=== PATIENT | male | born 1950 | race Caucasian/White ===

== ENCOUNTER → 2019-04-03 09:14 | Outpatient (CLI) | payer OTHER, MEDICARE, SELFPAY ==
[2019-04-03 10:26] LABS: Alanine Aminotransferase 17 IU/L (21-72); Albumin 4.3 g/dL (3.5-5.0); Albumin Globulin Ratio 1.5 (1.0-2.8); Alkaline Phosphatase 57 U/L (38-126); Aspartate Aminotransferase 21 IU/L (17-59); Bilirubin Total 0.8 mg/dL (0.2-1.3); Blood Urea Nitrogen 14 mg/dL (9-20); Calcium 9.5 mg/dL (8.4-10.2); Carbon Dioxide 29 mmol/L (22-32); Chloride 103 mmol/L (98-107); Cholesterol 178 mg/dL (140-199); Estimated Glomerular Filt Rate > 60.0 mL/min (>60); Globulin 2.9 g/dL (1.7-4.1); Glucose 101 mg/dL (80-110); HDL Cholesterol 31 mg/dL (40-60); HEMOLYSIS < 15 (0-50); LDL Cholesterol Calculated 121 mg/dL (<100); Potassium 4.3 mmol/L (3.4-5.1); Sodium 141 mmol/L (137-145); Total Protein 7.2 g/dL (6.3-8.2); Triglycerides 131 mg/dL (35-150)
[2019-04-03 10:35] LABS: Free T4, Direct Thyroxine 0.77 ng/dL (0.78-2.19)
[2019-04-03 10:49] LABS: Thyroid Stimulating Hormone 3.48 uIU/mL (0.47-4.68)
[2019-04-03 10:51] LABS: Prostate Specific Antigen Scrn 1.41 ng/mL (0.1-4.0)
== END ==
PROVIDERS: PCP Internal Medicine; Visit Provider Internal Medicine
DX: E03.9 Hypothyroidism, unspecified (principal); E78.5 Hyperlipidemia, unspecified; Z12.5 Encounter for screening for malignant neoplasm of prostate
CPT/HCPCS: 36415; 80053; 80061; 84439; 84443; G0103

== ENCOUNTER → 2022-11-22 10:40 | Outpatient (CLI) | payer MEDICARE, BC, SELFPAY ==
[2022-11-22 12:34] LABS: Alanine Aminotransferase 27 IU/L (<50); Albumin 4.4 g/dL (3.5-5.0); Albumin Globulin Ratio 1.4 (1.0-2.8); Alkaline Phosphatase 47 U/L (38-126); Aspartate Aminotransferase 26 IU/L (17-59); Bilirubin Total 0.9 mg/dL (0.2-1.3); Blood Urea Nitrogen 20 mg/dL (9-20); Calcium 9.1 mg/dL (8.4-10.2); Carbon Dioxide 25 mmol/L (22-32); Chloride 105 mmol/L (98-107); Cholesterol 216 mg/dL (140-199); Estimated Glomerular Filt Rate > 60 mL/min (>60); Globulin 3.1 g/dL (1.7-4.1); Glucose 96 mg/dL (80-110); HDL Cholesterol 33 mg/dL (40-60); HEMOLYSIS < 15 (0-50); LDL Cholesterol Calculated 146 mg/dL (<100); Sodium 138 mmol/L (137-145); Total Protein 7.5 g/dL (6.3-8.2); Triglycerides 183 mg/dL (35-150)
[2022-11-22 12:49] LABS: Free T4, Direct Thyroxine 0.84 ng/dL (0.78-2.19)
[2022-11-22 13:03] LABS: Thyroid Stimulating Hormone 3.33 uIU/mL (0.47-4.68)
[2022-11-22 13:05] LABS: Prostate Specific Antigen Scrn 2.96 ng/mL (0.1-4.0)
[2022-11-23 12:30] LABS: Var-Zoster Immunity Screen 1977 index (Immune >165)
== END ==
PROVIDERS: PCP Internal Medicine; Referring Provider Internal Medicine; Visit Provider Internal Medicine
DX: E03.9 Hypothyroidism, unspecified (principal); Z12.5 Encounter for screening for malignant neoplasm of prostate; E78.5 Hyperlipidemia, unspecified
CPT/HCPCS: 36415; 80053; 80061; 84439; 84443; 86787; G0103

== ENCOUNTER → 2022-12-11 11:53 | Outpatient (CLI) | payer MEDICARE, BC, SELFPAY ==
--- NOTE | 2022-12-11 11:54 | DI.RAD.S_ITS ---
PROCEDURE: XR KNEE LT 3V INDICATIONS: left knee pain TECHNIQUE: 3 views of the knee were acquired. COMPARISON: None. FINDINGS: Bones: No fractures or dislocations. No suspicious bony lesions. Mild tricompartmental osteoarthritic degenerative change. Soft tissues: No joint effusion. No suspicious soft tissue calcifications. IMPRESSION: Mild tricompartmental osteoarthritis. Dictated by: Vita Coe MD, PhD on 12/11/2022 at 13:22 Approved by: Vita Coe MD, PhD on 12/11/2022 at 13:23
== END ==
PROVIDERS: PCP Internal Medicine; Referring Provider Internal Medicine; Visit Provider Internal Medicine
DX: M17.12 Unilateral primary osteoarthritis, left knee (principal); M25.562 Pain in left knee
CPT/HCPCS: 73562

== ENCOUNTER 2023-02-07 07:35 | Day surgery (SDC) | payer MEDICARE, BC, SELFPAY ==
--- NOTE | 2023-02-07 | PATH_ITS ---
[facility] Accession Number: [id number] No. of containers..01 Tissue . 01 Material submitted: . rectum - RECTAL POLYP . 01 Diagnosis: Rectal Polyp: Hyperplastic polyp. MRV 02/14/2023 1254 Local . 01 Electronically signed: . Gustabo Spring MD, PhD, Pathologist NPI- [id number] . 01 Gross description: . RECTAL POLYP: Received in formalin is 1 fragment(s) of mora, soft tissue measuring 0.4 x 0.3 x 0.1 cm submitted entirely in 1 cassette(s) /LINDSEY 02/12/2023 0036 Local . 01 Pathologist provided ICD-10: K62.1 . 01 CPT . 744256 Specimen Comment: A courtesy copy of this report has been sent to [phone] Performed at: 01 [facility] [address] [place] [address] [id number] MD Fam Sharma MD Phone: [phone]
[2023-02-07 08:02] VITALS: BP 149/82; PULSE 63; RESP 16; TEMP 36.3; O2SAT 99; BMI 33.5
[2023-02-07] MEDS: LACTATED RINGERS 1,000 ML 150 ML IV (08:14)
--- NOTE | 2023-02-07 08:37 | PM.HP.1 ---
History of Present Illness History of Present Illness Date Patient Seen: 02/07/23 Time Patient Seen: 08:37 Chief complaint: Screening Colonoscopy Narrative: Prasad is a 72-year-old man who is here for a colonoscopy. He has no family history of colon cancer. He is never had a colonoscopy before. [facility] Medical History (Updated 02/07/23 @ 08:37 by Josh Bradley MD) Acquired hypothyroidism (04/14/12) Hyperlipidemia (04/14/12) Family History (Updated 11/22/22 @ 10:22 by Guillermo Lazo MD) Brother Prostate cancer Social History household members: spouse Smoking Status: Never smoker alcohol intake: never Meds Home Medications and Allergies Home Medications Medication Instructions Recorded Confirmed Type simvastatin 40 mg tablet 40 mg PO DAILY #90 tabs 12/11/22 02/07/23 Rx sodium sul 1.479 gram-potas ch See Rx Instructions PO PER PKG DIR 12/20/22 02/07/23 Rx 0.188 gram-magnes sul 0.225 gram #24 tabs tablet (Sutab) Allergies Allergy/AdvReac Type Severity Reaction Status Date / Time No Known Drug Allergies Allergy Verified 12/11/22 11:09 Exam Vital Signs (past 8 hours): - 02/07/23 08:02 Temperature 97.3 F L Pulse Rate 63 Respiratory Rate 16 Blood Pressure 149/82 H Pulse Oximetry 99 Oxygen Delivery Method Room Air Oxygen Delivery Method Room Air Const General: healthy appearing Assessment & Plan Assessment and plan (1) Colon cancer screening: Status: Acute Plan We reviewed the risks and benefits of colonoscopy for colon cancer screening and he would like to proceed.
--- NOTE | 2023-02-07 09:10 | PM.OP.COLON ---
Operative Date/Time/Diagnoses Date of procedure: 02/07/23 Time of procedure: 09:11 Pre-op diagnosis: Colon cancer screening Post-op diagnosis: same Procedure & Clinicians Study performed: Colonoscopy Same procedure as scheduled: Yes Surgeon: Josh Bradley Procedure Notes Procedure in detail: Surgeon: Josh Bradley MD Anesthesia: Fabrice Aguilar CRNA Procedure: The patient was brought to the endoscopy suite, placed in left lateral decubitus position. The patient was connected to monitoring devices. A time-out was performed. Sedation was administered. Once the patient was adequately sedated, a digital rectal exam was performed and was normal. The scope was then inserted and advanced to the cecum where the appendiceal orifice was identified and photographed. The scope was then slowly withdrawn over greater than 6 minutes. The mucosa was thoroughly inspected. There was a 4 mm polyp in the mid rectum removed with the Jumbo forceps. The scope was retroflexed in the rectum. No other abnormalities were found. The scope was straightened and removed. The patient was awakened and brought to recovery. Scope withdrawal time: 13 minutes Sedation time: 17 minutes EBL: 2 mL Findings: 4 mm rectal Post-procedure Disposition: PACU
[2023-02-07 09:11] VITALS: BP 98/60; PULSE 79; RESP 17; TEMP 37.2; O2SAT 98
[2023-02-07 09:16] VITALS: BP 97/69; PULSE 79; RESP 20; TEMP 37.1; O2SAT 96
[2023-02-07 09:22] VITALS: BP 93/63; PULSE 68; RESP 14; O2SAT 96
[2023-02-07 09:31] VITALS: BP 98/68; PULSE 65; RESP 14; TEMP 37.1; O2SAT 98
== END 2023-02-07 09:55 | disposition home or self-care (01) ==
PROVIDERS: Family Provider Internal Medicine; PCP Internal Medicine; Referring Provider Surgery; Visit Provider Surgery
PROC: 0DJD8ZZ Inspection of Lower Intestinal Tract, Via Natural or Artificial Opening Endoscopic (ICD-10-PCS; CPT 45378; principal; 2023-02-07 08:45)
DX: Z12.11 Encounter for screening for malignant neoplasm of colon (principal); K62.1 Rectal polyp
CPT/HCPCS: 45380; J2704

== ENCOUNTER 2023-03-26 12:45 | Outpatient (RCR) | payer MEDICARE, BC, SELFPAY ==
--- NOTE | 2023-01-08 14:29 | PT.OIE ---
Current Diagnoses Pain in left knee (01/08/23) Difficulty in walking, not elsewhere classified (01/08/23) Abnormal posture (01/08/23) Weakness (01/08/23) Past Medical History (Last Updated 12/11/22 @ 11:44 by Guillermo Lazo MD) Acquired hypothyroidism (04/14/12) Hyperlipidemia (04/14/12) Visit Care Team Role Provider Type Guillermo Lazo MD Attending Provider Physician Family Provider Primary Care Provider Referring Provider Specialty: Internal Medicine Address: [address] [place] [address], [address], [facility] Email: [email or web address] Physical Therapy Initial Evaluation PT-OP-A Visit Information Start: 01/07/23 13:48 Freq: Status: Active Protocol: Document 01/08/23 07:28 [facility] (Rec: 01/08/23 08:18 [facility] [id number]) Out-Patient Physical Therapy Visit Information Visit Information Visit Type Initial Evaluation Visit Start Time 07:35 Visit Stop Time 08:15 Total Visit Minutes 40 Visit Number 1 Number of ACCESS DATABASE DEVELOPER Visits 0 PT-OP-B Current Condition Start: 01/07/23 13:48 Freq: Status: Active Protocol: Document 01/08/23 07:28 [facility] (Rec: 01/08/23 08:18 [facility] [id number]) Current Condition History of Current Condition Onset Date L 1year ago Current Complaints L knee pain History of Current Condition Pt reports his L knee swelled up after starting w/an ant knee pain (stabbing pain) then it felt unstable. This was last year and it gradually go better. The R knee feels pretty similiar to L right now . he wants to make sure he is doing the right exercises to make sure he doesn't injure it more. [place] a step and had a pain. He notes it is better now. 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 He played sports w/a hinged brace. He used ibuprofen to help with pain and wore a compression sleeve w/plastic hinge. He wears those every day. He feels it sometimes w/ uneven surfaces, it gets irritated. It hurts ot get on his knees to garden. Since he has always had knee problems, he hasn't even spent much time in squat. Pt reports his knees bothered him into adulthood where they would get sore bu tw/o treatment. Pt reprots the other day the L ankle felt out of joint and it was hard to walk on it. It went back to normal about 20 min later. This is really recent. He has hx of lots of sprained ankles and old breaks. Pt typically d0es 2 15 min walks a dayw/dog daily and walks at least a mile at the dog park. He tries to work on the uneven surfaces. The walks usually have a mix of [place], sidewalk and forest lands. now can feel knee w/steep up/down or step on a rootor rock.Pt reprots he has high arches and used to have custom orthotics and most shoes offer enough support. Prior Treatments and Tests Xrays: IMPRESSION: Mild tricompartmental osteoarthritis. Treatment Goals Patient/Caregiver Goals Get an exercise routine to get legs to the best strength he can get PT-OP-C Subjective Start: 01/07/23 13:48 Freq: Status: Active Protocol: Document 01/08/23 07:28 [facility] (Rec: 01/08/23 08:18 [facility] [id number]) Patient Questionnaires Lower Extremity Functional Scale LEFS Score 59/80 OP-PT Pain Assessment Location knee pain Pain Location Details B knees (in joint) Description- Other doesn't feel right, unstable Frequency Intermittent Pain Duration get out of position goes away Other Pain Aggravating Factors kneeling, sit w/knee bent, uneven surfaces, twisting, up/ down hill PT-OP-D Balance Start: 01/07/23 13:48 Freq: Status: Active Protocol: Document 01/08/23 07:28 [facility] (Rec: 01/08/23 08:18 [facility] [id number]) Balance Tests Single Limb Standing Single Limb- Right > 30 sec mild deviation and lean over LE Single Limb- Left 24 sec w/ a lot of deviation and ben over LE PT-OP-F Manual Assessment Start: 01/07/23 13:48 Freq: Status: Active Protocol: Document 01/08/23 07:28 [facility] (Rec: 01/08/23 08:18 [facility] [id number]) Manual Assessments Joint Mobility Assessment Joint Mobility Assessment L>R valgus rearfoot, L iliac crest slightly higher, equal greater trochanter, sligth R SB in standing; L pelvic shear PT-OP-G Mobility & Gait Start: 01/07/23 13:48 Freq: Status: Active Protocol: Document 01/08/23 07:28 [facility] (Rec: 01/08/23 08:18 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 (Rec: 01/08/23 08:18 [facility] [id number]) Knee Goniometric Range of Motion Knee Left Flexion Active (degrees) 121 Hyper-Extension Active 2 Comments feels tight Right Flexion Active (degrees) 120 Extension Active (degrees) 0 Ankle and Foot Goniometric Range of Motion Ankle and Foot Left Active Dorsiflexion with Knee Flexed 0 Right Active Dorsiflexion with Knee Flexed 6 PT-OP-M Strength Start: 01/07/23 13:48 Freq: Status: Active Protocol: Document 01/08/23 07:28 [facility] (Rec: 01/08/23 08:18 [facility] [id number]) Hip Strength Hip Manual Muscle Testing Right Flexion (L2) 4+ Good+ Extension (S1) 4 Good Abduction 3+ Fair+ Adduction 4 Good External Rotation 4+ Good+ Internal Rotation 4+ Good+ Left Flexion (L2) 4+ Good+ Extension (S1) 4 Good Abduction 4 Good Adduction 3+ Fair+ External Rotation 4 Good Internal Rotation 4 Good Knee Strength Knee Manual Muscle Testing Right Flexion (S2) 5 Normal Extension (L3) 5 Normal Left Flexion (S2) 4+ Good+ Extension (L3) 5 Normal Ankle/Foot Strength Ankle and Foot Manual Muscle Testing Right Dorsiflexion (L4) 5 Normal Plantarflexion (S1) 5 Normal Left Dorsiflexion (L4) 5 Normal Plantarflexion (S1) 5 Normal Comments 20 heel raises B PT-OP-Q Treatments Start: 01/07/23 13:48 Freq: Status: Active Protocol: Document 01/08/23 07:28 [facility] (Rec: 01/08/23 08:18 [facility] [id number]) Therapeutic Exercises Standing Exercises arch raises Side left Reps/Minutes 10 PT-OP-T Assessment and Plan Start: 01/07/23 13:48 Freq: Status: Active Protocol: Document 01/08/23 07:28 [facility] (Rec: 01/08/23 08:18 [facility] [id number]) Physical Therapy Assessment Rehab Potential Rehabilitation Potential Good Evaluation Complexity Number of Personal Factors/Comorbidities 3 or More Number of Body Systems Impaired 4 or More Clinical Presentation at Evaluation Evolving Impairments Impairments Activity Tolerance,Balance, Functional Activities, Functional Mobility,Integument ,Pain,Posture,ROM,Soft Tissue Mobility,Strength Goals gardening Sanitizer Goal (LTG) Pt will be able to get down to the ground and on knees w/o inc pain. LTG Duration 04/02 activities Sanitizer Goal (LTG) Pt will feel stable w/B knees w/unstable surfaces and report no issues w/ pain during walks or any surface including twisting. LTG Duration 04/02 strength Short Term Goal (STG) Pt will be indep w/HEP STG Duration 02/12/23 Sanitizer Goal (LTG) Pt will score 5/5 on all MMT and at lest 3/5 on LPM to show imrpoved stabiltiy of LE and trunk to improve overall body stability. LTG Duration 04/02 balance Skilled Nursing Goal (LTG) Pt will be able to do SLS 30 sec B w/o lat lean or deviation. LTG Duration 04/02/23 Assessment Summary Assessment Pt presents w/L knee injury when he stepped funny 1 year ago and he has pain mostly w/ unstable surfaces and some w/ up/down hills/stairs. He still walks daily and since the initial injury, his pain is better, but he is noting R knee has some feeling of instability also. he shows B weakness of LEs and dec stabilty on LLE. He would benefit from skilled PT to work on B knee stability, knee mechanics and mobility ( including hip, pelvis and ankle moblity), gait mechanics , balance, and overall dec in pain to allow pt to do all typical activities w/o inc pain or feeling of instability . Physical Therapy Plan Frequency and Duration Duration of treatment (weeks) 12 Plan of Care Start Date 01/08/23 Plan of Care End Date 04/02/23 Therapeutic Interventions Therapeutic Interventions Balance Training,Gait Training ,Home Exercise Program,Joint Mobilizations,Manual Therapy, Neuromuscular Re-education, Orthotic/Prosthetic Management ,Patient/Caregiver Education, Self-Care/Home Management,Soft Tissue Mobilization,Taping, Therapeutic Activities, Therapeutic Exercises Modalities Cold Pack/Ice Massage,Electric Stimulation,Hot Packs, Infrared Therapy,Ultrasound Next Visit Focus/Plan Next Note Type Treatment Note Next Visit Plan knee special tests (meniscus & ligametous); HEP: squats, sidesteps, add, RDL, SLS; manual to hip and ankle to improve mobility of B knees
--- NOTE | 2023-01-08 17:29 | PT.OPPOC ---
Physical, Occupational & Speech Therapy At [facility] Current Diagnoses Pain in left knee (01/08/23) Difficulty in walking, not elsewhere classified (01/08/23) Abnormal posture (01/08/23) Weakness (01/08/23) Visit Care Team Role Provider Type Guillermo Lazo MD Attending Provider Physician Family Provider Primary Care Provider Referring Provider Specialty: Internal Medicine Address: [address] [place] [address], [facility] [address], [address] Email: [email or web address] Plan Of Care PT-OP-T Assessment and Plan Start: 01/07/23 13:48 Freq: Status: Active Protocol: Document 01/08/23 07:28 [facility] (Rec: 01/08/23 08:18 [facility] [id number]) Physical Therapy Assessment Rehab Potential Rehabilitation Potential Good Evaluation Complexity Number of Personal Factors/Comorbidities 3 or More Number of Body Systems Impaired 4 or More Clinical Presentation at Evaluation Evolving Impairments Impairments Activity Tolerance,Balance, Functional Activities, Functional Mobility,Integument ,Pain,Posture,ROM,Soft Tissue Mobility,Strength Goals gardening Retirement Goal (LTG) Pt will be able to get down to the ground and on knees w/o inc pain. LTG Duration 04/02 activities Retirement Goal (LTG) Pt will feel stable w/B knees w/unstable surfaces and report no issues w/ pain during walks or any surface including twisting. LTG Duration 04/02 strength Short Term Goal (STG) Pt will be indep w/HEP STG Duration 02/12/23 Retirement Goal (LTG) Pt will score 5/5 on all MMT and at lest 3/5 on LPM to show imrpoved stabiltiy of LE and trunk to improve overall body stability. LTG Duration 04/02 balance Retirement Goal (LTG) Pt will be able to do SLS 30 sec B w/o lat lean or deviation. LTG Duration 04/02/23 Assessment Summary Assessment Pt presents w/L knee injury when he stepped funny 1 year ago and he has pain mostly w/ unstable surfaces and some w/ up/down hills/stairs. He still walks daily and since the initial injury, his pain is better, but he is noting R knee has some feeling of instability also. he shows B weakness of LEs and dec stabilty on LLE. He would benefit from skilled PT to work on B knee stability, knee mechanics and mobility ( including hip, pelvis and ankle moblity), gait mechanics , balance, and overall dec in pain to allow pt to do all typical activities w/o inc pain or feeling of instability . Physical Therapy Plan Frequency and Duration Duration of treatment (weeks) 12 Plan of Care Start Date 01/08/23 Plan of Care End Date 04/02/23 Therapeutic Interventions Therapeutic Interventions Balance Training,Gait Training ,Home Exercise Program,Joint Mobilizations,Manual Therapy, Neuromuscular Re-education, Orthotic/Prosthetic Management ,Patient/Caregiver Education, Self-Care/Home Management,Soft Tissue Mobilization,Taping, Therapeutic Activities, Therapeutic Exercises Modalities Cold Pack/Ice Massage,Electric Stimulation,Hot Packs, Infrared Therapy,Ultrasound Next Visit Focus/Plan Next Note Type Treatment Note Next Visit Plan knee special tests (meniscus & ligametous); HEP: squats, sidesteps, add, RDL, SLS; manual to hip and ankle to improve mobility of B knees Plan of Care Dates Plan of Care Start Date 01/08/23 Plan of Care End Date 04/02/23 Electronically Signed by: Eryn Rodriguez, PT 01/09/23 9298 If you are in agreement with this Plan of Care, please return a signed and dated copy. I have reviewed this Plan of Care and certify that the skilled therapy services above are required to meet the patient?s needs. Physician Signature Date Printed Name and Credentials Clinical Instructor Signature Printed Name and Credentials
--- NOTE | 2023-01-16 10:08 | PT.OTN ---
Current Diagnoses Pain in left knee (01/16/23) Difficulty in walking, not elsewhere classified (01/16/23) Abnormal posture (01/16/23) Weakness (01/16/23) Physical Therapy Treatment Note PT-OP-A Visit Information Start: 01/07/23 13:48 Freq: Status: Active Protocol: Document 01/16/23 07:49 [facility] (Rec: 01/16/23 10:07 [facility] [id number]) Out-Patient Physical Therapy Visit Information Visit Information Visit Type Treatment Note Visit Note 08/24 Visit Start Time 09:05 Visit Stop Time 09:46 Total Visit Minutes 41 Visit Number 2 Number of [employer] Visits 0 PT-OP-B Current Condition Start: 01/07/23 13:48 Freq: Status: Active Protocol: Document 01/08/23 07:28 [facility] (Rec: 01/08/23 08:18 [facility] [id number]) Current Condition History of Current Condition Onset Date L 1year ago Current Complaints L knee pain History of Current Condition Pt reports his L knee swelled up after starting w/an ant knee pain (stabbing pain) then it felt unstable. This was last year and it gradually go better. The R knee feels pretty similiar to L right now . he wants to make sure he is doing the right exercises to make sure he doesn't injure it more. [place] and had a pain. He notes it is better now. 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 He played sports w/a hinged brace. He used ibuprofen to help with pain and wore a compression sleeve w/plastic hinge. He wears those every day. He feels it sometimes w/ uneven surfaces, it gets irritated. It hurts ot get on his knees to garden. Since he has always had knee problems, he hasn't even spent much time in squat. Pt reports his knees bothered him into adulthood where they would get sore bu tw/o treatment. Pt reprots the other day the L ankle felt out of joint and it was hard to walk on it. It went back to normal about 20 min later. This is really recent. He has hx of lots of sprained ankles and old breaks. Pt typically d0es 2 15 min walks a dayw/dog daily and walks at least a mile at the dog park. He tries to work on the uneven surfaces. The walks usually have a mix of [place], sidewalk and forest lands. now can feel knee w/steep up/down or step on a rootor rock.Pt reprots he has high arches and used to have custom orthotics and most shoes offer enough support. Prior Treatments and Tests Xrays: IMPRESSION: Mild tricompartmental osteoarthritis. Treatment Goals Patient/Caregiver Goals Get an exercise routine to get legs to the best strength he can get PT-OP-C Subjective Start: 01/07/23 13:48 Freq: Status: Active Protocol: Document 01/16/23 07:49 [facility] (Rec: 01/16/23 10:07 [facility] [id number]) OP-PT Subjective Patient Comments Patient Comments Pt reports doing arch lifts. PT-OP-D Balance Start: 01/07/23 13:48 Freq: Status: Active Protocol: Document 01/08/23 07:28 [facility] (Rec: 01/08/23 08:18 [facility] [id number]) Balance Tests Single Limb Standing Single Limb- Right > 30 sec mild deviation and lean over LE Single Limb- Left 24 sec w/ a lot of deviation and ben over LE PT-OP-F Manual Assessment Start: 01/07/23 13:48 Freq: Status: Active Protocol: Document 01/08/23 07:28 [facility] (Rec: 01/08/23 08:18 [facility] [id number]) Manual Assessments Joint Mobility Assessment Joint Mobility Assessment L>R valgus rearfoot, L iliac crest slightly higher, equal greater trochanter, sligth R SB in standing; L pelvic shear PT-OP-G Mobility & Gait Start: 01/07/23 13:48 Freq: Status: Active Protocol: Document 01/08/23 07:28 [facility] (Rec: 01/08/23 08:18 [facility] [id number]) OP Gait Assessment Comments Gait Comments dec arm swing L>R;leans to R, dec pelvis motion, 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, 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 PT-OP-K Range of Motion Start: 01/07/23 13:48 Freq: Status: Active Protocol: Document 01/08/23 07:28 [facility] (Rec: 01/08/23 08:18 [facility] [id number]) Knee Goniometric Range of Motion Knee Left Flexion Active (degrees) 121 Hyper-Extension Active 2 Comments feels tight Right Flexion Active (degrees) 120 Extension Active (degrees) 0 Ankle and Foot Goniometric Range of Motion Ankle and Foot Left Active Dorsiflexion with Knee Flexed 0 Right Active Dorsiflexion with Knee Flexed 6 PT-OP-L Special Tests Start: 01/07/23 13:48 Freq: Status: Active Protocol: Document 01/16/23 07:49 [facility] (Rec: 01/16/23 10:07 [facility] [id number]) Special Tests Knee Special Tests Irina Test Test Results neg B Thessaly Test 5 Degrees Test Results neG B Apley's Compression Test Results neg B ligamentous testing Test Results neg B PT-OP-M Strength Start: 01/07/23 13:48 Freq: Status: Active Protocol: Document 01/08/23 07:28 [facility] (Rec: 01/08/23 08:18 [facility] [id number]) Hip Strength Hip Manual Muscle Testing Right Flexion (L2) 4+ Good+ Extension (S1) 4 Good Abduction 3+ Fair+ Adduction 4 Good External Rotation 4+ Good+ Internal Rotation 4+ Good+ Left Flexion (L2) 4+ Good+ Extension (S1) 4 Good Abduction 4 Good Adduction 3+ Fair+ External Rotation 4 Good Internal Rotation 4 Good Knee Strength Knee Manual Muscle Testing Right Flexion (S2) 5 Normal Extension (L3) 5 Normal Left Flexion (S2) 4+ Good+ Extension (L3) 5 Normal Ankle/Foot Strength Ankle and Foot Manual Muscle Testing Right Dorsiflexion (L4) 5 Normal Plantarflexion (S1) 5 Normal Left Dorsiflexion (L4) 5 Normal Plantarflexion (S1) 5 Normal Comments 20 heel raises B PT-OP-Q Treatments Start: 01/07/23 13:48 Freq: Status: Active Protocol: Document 01/16/23 07:49 [facility] (Rec: 01/16/23 10:07 [facility] [id number]) Therapeutic Exercises Standing Exercises sidesteps Standing Exercise Name standing up right then mini squat Side bilateral Reps/Minutes 20ft ea Comments cues for foot position, and no lat lean RDL Standing Exercise Name dowel on back Side bilateral Reps/Minutes 2x10 Comments max cues squats Standing Exercise Name over chair Side bilateral Reps/Minutes 15 Comments cues for glute engagment & knee tracking arch raises Standing Exercise Name mod cues Side left Reps/Minutes 10 Manual Therapy Treatment Soft Tissue Mobilization calf Body Location L calf and achilles Mobilization Type Rolling,Strumming,Sustained Pressure Intensity/Depth Moderate Body Position Prone Comments w/aps Joint Mobilizations talus Joint L Direction distraction & med and lat glide FM calcaneus Joint L Direction distraction & lat glide FM Neuro Re-Education Treatment Balance Activities SLS Comments in mirror w/cues for hips level PT-OP-T Assessment and Plan Start: 01/07/23 13:48 Freq: Status: Active Protocol: Document 01/16/23 07:49 [facility] (Rec: 01/16/23 10:07 [facility] [id number]) Physical Therapy Assessment Goals gardening Jail Goal (LTG) Pt will be able to get down to the ground and on knees w/o inc pain. LTG Duration 04/02 activities Jail Goal (LTG) Pt will feel stable w/B knees w/unstable surfaces and report no issues w/ pain during walks or any surface including twisting. LTG Duration 04/02 strength Short Term Goal (STG) Pt will be indep w/HEP STG Duration 02/12/23 Jail Goal (LTG) Pt will score 5/5 on all MMT and at lest 3/5 on LPM to show imrpoved stabiltiy of LE and trunk to improve overall body stability. LTG Duration 04/02 balance Jail Goal (LTG) Pt will be able to do SLS 30 sec B w/o lat lean or deviation. LTG Duration 04/02/23 Assessment Summary Assessment Pt did well with exercises but did rquire cues throughout for slowing down, knee tracking and posture. He needed a lot of cuueing especially for RDL and was not able to progress to wts. He was tracking much med to big toe until after manual, whcih improved to over big toe w/ knee flex. Physical Therapy Plan Frequency and Duration Duration of treatment (weeks) 12 Plan of Care Start Date 01/08/23 Plan of Care End Date 04/02/23 Next Visit Focus/Plan Next Note Type Treatment Note Next Visit Plan review HEP: squats, sidesteps, add, RDL, SLS; red clips balance, try lunges, manual to hip and ankle to improve mobility of B knees
--- NOTE | 2023-01-22 15:29 | PT.OTN ---
Addendum entered and electronically signed by Eryn Rodriguez PT 01/23/23 07:44: PT direct supervision and direction to PT student. Original Note: Current Diagnoses Pain in left knee (01/22/23) Difficulty in walking, not elsewhere classified (01/22/23) Abnormal posture (01/22/23) Weakness (01/22/23) Physical Therapy Treatment Note PT-OP-A Visit Information Start: 01/07/23 13:48 Freq: Status: Active Protocol: Document 01/22/23 09:52 (Rec: 01/22/23 09:59 [id number]) Out-Patient Physical Therapy Visit Information Visit Information Visit Type Treatment Note Visit Start Time 09:04 Visit Stop Time 09:50 Total Visit Minutes 46 Visit Number 3 Number of VETERINARY RADIOLOGIST Visits 0 PT-OP-B Current Condition Start: 01/07/23 13:48 Freq: Status: Active Protocol: Document 01/08/23 07:28 [facility] (Rec: 01/08/23 08:18 [facility] [id number]) Current Condition History of Current Condition Onset Date L 1year ago Current Complaints L knee pain History of Current Condition Pt reports his L knee swelled up after starting w/an ant knee pain (stabbing pain) then it felt unstable. This was last year and it gradually go better. The R knee feels pretty similiar to L right now . he wants to make sure he is doing the right exercises to make sure he doesn't injure it more. [place] and had a pain. He notes it is better now. 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 He played sports w/a hinged brace. He used ibuprofen to help with pain and wore a compression sleeve w/plastic hinge. He wears those every day. He feels it sometimes w/ uneven surfaces, it gets irritated. It hurts ot get on his knees to garden. Since he has always had knee problems, he hasn't even spent much time in squat. Pt reports his knees bothered him into adulthood where they would get sore bu tw/o treatment. Pt reprots the other day the L ankle felt out of joint and it was hard to walk on it. It went back to normal about 20 min later. This is really recent. He has hx of lots of sprained ankles and old breaks. Pt typically d0es 2 15 min walks a dayw/dog daily and walks at least a mile at the dog park. He tries to work on the uneven surfaces. The walks usually have a mix of [place], sidewalk and forest lands. now can feel knee w/steep up/down or step on a rootor rock.Pt reprots he has high arches and used to have custom orthotics and most shoes offer enough support. Prior Treatments and Tests Xrays: IMPRESSION: Mild tricompartmental osteoarthritis. Treatment Goals Patient/Caregiver Goals Get an exercise routine to get legs to the best strength he can get PT-OP-C Subjective Start: 01/07/23 13:48 Freq: Status: Active Protocol: Document 01/22/23 09:52 [facility] (Rec: 01/22/23 09:59 [id number]) OP-PT Subjective Patient Comments Patient Comments Pt reports that he has had no issues. some instability when walking his dog, he tends to avoid loose gravel walk ways. He has been doing RDLs at home w/out the bar. PT-OP-D Balance Start: 01/07/23 13:48 Freq: Status: Active Protocol: Document 01/08/23 07:28 [facility] (Rec: 01/08/23 08:18 [facility] [id number]) Balance Tests Single Limb Standing Single Limb- Right > 30 sec mild deviation and lean over LE Single Limb- Left 24 sec w/ a lot of deviation and ben over LE PT-OP-F Manual Assessment Start: 01/07/23 13:48 Freq: Status: Active Protocol: Document 01/08/23 07:28 [facility] (Rec: 01/08/23 08:18 [facility] [id number]) Manual Assessments Joint Mobility Assessment Joint Mobility Assessment L>R valgus rearfoot, L iliac crest slightly higher, equal greater trochanter, sligth R SB in standing; L pelvic shear PT-OP-G Mobility & Gait Start: 01/07/23 13:48 Freq: Status: Active Protocol: Document 01/08/23 07:28 [facility] (Rec: 01/08/23 08:18 [facility] [id number]) OP Gait Assessment Comments Gait Comments dec arm swing L>R;leans to R, dec pelvis motion, 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, 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 PT-OP-K Range of Motion Start: 01/07/23 13:48 Freq: Status: Active Protocol: Document 01/08/23 07:28 [facility] (Rec: 01/08/23 08:18 [facility] [id number]) Knee Goniometric Range of Motion Knee Left Flexion Active (degrees) 121 Hyper-Extension Active 2 Comments feels tight Right Flexion Active (degrees) 120 Extension Active (degrees) 0 Ankle and Foot Goniometric Range of Motion Ankle and Foot Left Active Dorsiflexion with Knee Flexed 0 Right Active Dorsiflexion with Knee Flexed 6 PT-OP-L Special Tests Start: 01/07/23 13:48 Freq: Status: Active Protocol: Document 01/16/23 07:49 [facility] (Rec: 01/16/23 10:07 [facility] [id number]) Special Tests Knee Special Tests Irina Test Test Results neg B Thessaly Test 5 Degrees Test Results neG B Apley's Compression Test Results neg B ligamentous testing Test Results neg B PT-OP-M Strength Start: 01/07/23 13:48 Freq: Status: Active Protocol: Document 01/08/23 07:28 [facility] (Rec: 01/08/23 08:18 [facility] [id number]) Hip Strength Hip Manual Muscle Testing Right Flexion (L2) 4+ Good+ Extension (S1) 4 Good Abduction 3+ Fair+ Adduction 4 Good External Rotation 4+ Good+ Internal Rotation 4+ Good+ Left Flexion (L2) 4+ Good+ Extension (S1) 4 Good Abduction 4 Good Adduction 3+ Fair+ External Rotation 4 Good Internal Rotation 4 Good Knee Strength Knee Manual Muscle Testing Right Flexion (S2) 5 Normal Extension (L3) 5 Normal Left Flexion (S2) 4+ Good+ Extension (L3) 5 Normal Ankle/Foot Strength Ankle and Foot Manual Muscle Testing Right Dorsiflexion (L4) 5 Normal Plantarflexion (S1) 5 Normal Left Dorsiflexion (L4) 5 Normal Plantarflexion (S1) 5 Normal Comments 20 heel raises B PT-OP-Q Treatments Start: 01/07/23 13:48 Freq: Status: Active Protocol: Document 01/22/23 09:52 (Rec: 01/22/23 09:59 [id number]) Therapeutic Exercises Standing Exercises sidesteps Standing Exercise Name standing up right then mini squat Side bilateral Resistance blue band Reps/Minutes 20ft ea Comments cues for knee position; band above knee RDL Standing Exercise Name progressed to no bar w/ wt 5# then #10 Side bilateral Reps/Minutes 3x10 Comments max cues squats Standing Exercise Name No chair Side bilateral Reps/Minutes 15 Comments cues for glute engagment & knee tracking arch raises Standing Exercise Name mod cues Side left Reps/Minutes 10 Manual Therapy Treatment Soft Tissue Mobilization glute Body Location L Glute Mobilization Type Myofascial Release Intensity/Depth Moderate Body Position Hooklying Comments w/ER Joint Mobilizations Hip Body Position Supine Comments 1. ER hooklying FM 2. Flex inf FM 3. Abd; medial inf FM- manual facilitation at end range 4. IR hip on axis FM PT-OP-T Assessment and Plan Start: 01/07/23 13:48 Freq: Status: Active Protocol: Document 01/22/23 09:52 (Rec: 01/22/23 09:59 [id number]) Physical Therapy Assessment Goals gardening Pump Runner Goal (LTG) Pt will be able to get down to the ground and on knees w/o inc pain. LTG Duration 04/02 activities Pump Runner Goal (LTG) Pt will feel stable w/B knees w/unstable surfaces and report no issues w/ pain during walks or any surface including twisting. LTG Duration 04/02 strength Short Term Goal (STG) Pt will be indep w/HEP STG Duration 02/12/23 Pump Runner Goal (LTG) Pt will score 5/5 on all MMT and at lest 3/5 on LPM to show imrpoved stabiltiy of LE and trunk to improve overall body stability. LTG Duration 04/02 balance Pump Runner Goal (LTG) Pt will be able to do SLS 30 sec B w/o lat lean or deviation. LTG Duration 04/02/23 Assessment Summary Assessment Pts L knee is tracking better. Tracking over big toe. Pt was not Abd during squats so hip was assessed. pt responded well to meanual treatment. Following treatment knee was tracking more medially over big toe, still not over 2nd digit. Physical Therapy Plan Frequency and Duration Duration of treatment (weeks) 12 Plan of Care Start Date 01/08/23 Plan of Care End Date 04/02/23 Next Visit Focus/Plan Next Note Type Treatment Note Next Visit Plan review HEP: squats, sidesteps, add, RDL, SLS; red clips balance, try lunges, manual to ADD and pelvis. Talus on axis to improve mobility of B knees
--- NOTE | 2023-01-30 16:17 | PT.OTN ---
Current Diagnoses Pain in left knee (01/30/23) Difficulty in walking, not elsewhere classified (01/30/23) Abnormal posture (01/30/23) Weakness (01/30/23) Physical Therapy Treatment Note PT-OP-A Visit Information Start: 01/07/23 13:48 Freq: Status: Active Protocol: Document 01/30/23 08:59 [facility] (Rec: 01/30/23 11:00 [facility] [id number]) Out-Patient Physical Therapy Visit Information Visit Information Visit Type Treatment Note Visit Start Time 09:15 Visit Stop Time 09:56 Total Visit Minutes 41 Visit Number 4 Number of HAND OR MACHINE PASTER Visits 1 PT-OP-B Current Condition Start: 01/07/23 13:48 Freq: Status: Active Protocol: Document 01/08/23 07:28 [facility] (Rec: 01/08/23 08:18 [facility] [id number]) Current Condition History of Current Condition Onset Date L 1year ago Current Complaints L knee pain History of Current Condition Pt reports his L knee swelled up after starting w/an ant knee pain (stabbing pain) then it felt unstable. This was last year and it gradually go better. The R knee feels pretty similiar to L right now . he wants to make sure he is doing the right exercises to make sure he doesn't injure it more. [place] and had a pain. He notes it is better now. 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 He played sports w/a hinged brace. He used ibuprofen to help with pain and wore a compression sleeve w/plastic hinge. He wears those every day. He feels it sometimes w/ uneven surfaces, it gets irritated. It hurts ot get on his knees to garden. Since he has always had knee problems, he hasn't even spent much time in squat. Pt reports his knees bothered him into adulthood where they would get sore bu tw/o treatment. Pt reprots the other day the L ankle felt out of joint and it was hard to walk on it. It went back to normal about 20 min later. This is really recent. He has hx of lots of sprained ankles and old breaks. Pt typically d0es 2 15 min walks a dayw/dog daily and walks at [place] a mile [place] [email or web address]. He tries to work on the uneven surfaces. The walks usually have a mix of [place], sidewalk and forest lands. now can feel knee w/steep up/down or step on a rootor rock.Pt reprots he has high arches and used to have custom orthotics and most shoes offer enough support. Prior Treatments and Tests Xrays: IMPRESSION: Mild tricompartmental osteoarthritis. Treatment Goals Patient/Caregiver Goals Get an exercise routine to get legs to the best strength he can get PT-OP-C Subjective Start: 01/07/23 13:48 Freq: Status: Active Protocol: Document 01/30/23 08:59 [facility] (Rec: 01/30/23 11:00 [facility] [id number]) OP-PT Subjective Patient Comments Patient Comments Pt reports he has been doing pretty good, but experiencing L knee pain when doing squats at home. PT-OP-D Balance Start: 01/07/23 13:48 Freq: Status: Active Protocol: Document 01/08/23 07:28 [facility] (Rec: 01/08/23 08:18 [facility] [id number]) Balance Tests Single Limb Standing Single Limb- Right > 30 sec mild deviation and lean over LE Single Limb- Left 24 sec w/ a lot of deviation and ben over LE PT-OP-F Manual Assessment Start: 01/07/23 13:48 Freq: Status: Active Protocol: Document 01/08/23 07:28 [facility] (Rec: 01/08/23 08:18 [facility] [id number]) Manual Assessments Joint Mobility Assessment Joint Mobility Assessment L>R valgus rearfoot, L iliac crest slightly higher, equal greater trochanter, sligth R SB in standing; L pelvic shear PT-OP-G Mobility & Gait Start: 01/07/23 13:48 Freq: Status: Active Protocol: Document 01/08/23 07:28 [facility] (Rec: 01/08/23 08:18 [facility] [id number]) OP Gait Assessment Comments Gait Comments dec arm swing L>R;leans to R, dec pelvis motion, 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 Knee Goniometric Range of Motion Knee Left Flexion Active (degrees) 121 Hyper-Extension Active 2 Comments feels tight Right Flexion Active (degrees) 120 Extension Active (degrees) 0 Ankle and Foot Goniometric Range of Motion Ankle and Foot Left Active Dorsiflexion with Knee Flexed 0 Right Active Dorsiflexion with Knee Flexed 6 PT-OP-L Special Tests Start: 01/07/23 13:48 Freq: Status: Active Protocol: Document 01/16/23 07:49 [facility] (Rec: 01/16/23 10:07 [facility] [id number]) Special Tests Knee Special Tests Irina Test Test Results neg B Thessaly Test 5 Degrees Test Results neG B Apley's Compression Test Results neg B ligamentous testing Test Results neg B PT-OP-M Strength Start: 01/07/23 13:48 Freq: Status: Active Protocol: Document 01/08/23 07:28 [facility] (Rec: 01/08/23 08:18 [facility] [id number]) Hip Strength Hip Manual Muscle Testing Right Flexion (L2) 4+ Good+ Extension (S1) 4 Good Abduction 3+ Fair+ Adduction 4 Good External Rotation 4+ Good+ Internal Rotation 4+ Good+ Left Flexion (L2) 4+ Good+ Extension (S1) 4 Good Abduction 4 Good Adduction 3+ Fair+ External Rotation 4 Good Internal Rotation 4 Good Knee Strength Knee Manual Muscle Testing Right Flexion (S2) 5 Normal Extension (L3) 5 Normal Left Flexion (S2) 4+ Good+ Extension (L3) 5 Normal Ankle/Foot Strength Ankle and Foot Manual Muscle Testing Right Dorsiflexion (L4) 5 Normal Plantarflexion (S1) 5 Normal Left Dorsiflexion (L4) 5 Normal Plantarflexion (S1) 5 Normal Comments 20 heel raises B PT-OP-Q Treatments Start: 01/07/23 13:48 Freq: Status: Active Protocol: Document 01/30/23 08:59 (Rec: 01/30/23 11:00 [id number]) Gym Equipment Shuttle Balance Red Clips Details Balance, weight shifts Comments WBOS> NBOS Therapeutic Exercises Standing Exercises sidesteps Standing Exercise Name standing up right then mini squat Side bilateral Resistance blue band Reps/Minutes 20ft ea Comments cues for knee position; band above knee RDL Standing Exercise Name 10# Side bilateral Reps/Minutes 3 x 10 Comments cues to engage glutes and visual feedback to eliminate compensation in LB squats Standing Exercise Name No chair Side bilateral Reps/Minutes 15 Comments cues for glute engagment & knee tracking arch raises Standing Exercise Name Reviewed Manual Therapy Treatment Soft Tissue Mobilization glute Body Location L Glute Mobilization Type Myofascial Release Intensity/Depth Moderate Body Position Hooklying Comments w/ER calf Body Location L calf and achilles Mobilization Type Rolling,Strumming,Sustained Pressure Intensity/Depth Moderate Body Position Prone Comments w/aps Self-Care/Home Management Treatment Education Patient Education Body Mechanics,Home Exercise Program,Posture PT-OP-T Assessment and Plan Start: 01/07/23 13:48 Freq: Status: Active Protocol: Document 01/30/23 08:59 SW (Rec: 01/30/23 11:00 SW [id number]) Physical Therapy Assessment Goals gardening Mine Laborer Goal (LTG) Pt will be able to get down to the ground and on knees w/o inc pain. LTG Duration 04/02 activities [facility] Goal (LTG) Pt will feel stable w/B knees w/unstable surfaces and report no issues w/ pain during walks or any surface including twisting. LTG Duration 04/02 strength Short Term Goal (STG) Pt will be indep w/HEP STG Duration 02/12/23 Mine Laborer Goal (LTG) Pt will score 5/5 on all MMT and at lest 3/5 on LPM to show imrpoved stabiltiy of LE and trunk to improve overall body stability. LTG Duration 04/02 balance [facility] Goal (LTG) Pt will be able to do SLS 30 sec B w/o lat lean or deviation. LTG Duration 04/02/23 Assessment Summary Assessment Started balance progression today to work toward SLS balance goal. Pt challenged, ankle strategies engaged to maintain balance with BLE. Reviewed HEP to assess execution to address pain with squats, cues for knees to not go beyond toes and knee alignment with 2nd toe, good carryover, no reproduction of pain, recommended use of mirror for visual feedback for knee alignment. Physical Therapy Plan Frequency and Duration Duration of treatment (weeks) 12 Plan of Care Start Date 01/08/23 Plan of Care End Date 04/02/23 Therapeutic Interventions Therapeutic Interventions Balance Training,Gait Training ,Home Exercise Program,Joint Mobilizations,Manual Therapy, Neuromuscular Re-education, Orthotic/Prosthetic Management ,Patient/Caregiver Education, Self-Care/Home Management,Soft Tissue Mobilization,Taping, Therapeutic Activities, Therapeutic Exercises Modalities Cold Pack/Ice Massage,Electric Stimulation,Hot Packs, Infrared Therapy,Ultrasound Next Visit Focus/Plan Next Note Type Treatment Note Next Visit Plan review HEP: squats, sidesteps, add, RDL, SLS; red clips balance, try lunges, manual to ADD and pelvis. Talus on axis to improve mobility of B knees
--- NOTE | 2023-02-04 13:15 | PT.OTN ---
Current Diagnoses Pain in left knee (02/04/23) Difficulty in walking, not elsewhere classified (02/04/23) Abnormal posture (02/04/23) Weakness (02/04/23) Physical Therapy Treatment Note PT-OP-A Visit Information Start: 01/07/23 13:48 Freq: Status: Active Protocol: Document 02/04/23 12:18 NB (Rec: 02/04/23 13:11 NB [id number]) Out-Patient Physical Therapy Visit Information Visit Information Visit Type Treatment Note Visit Start Time 12:18 Visit Stop Time 13:02 Total Visit Minutes 44 Visit Number 5 Number of AUTOMOTIVE DISMANTLER Visits 2 PT-OP-B Current Condition Start: 01/07/23 13:48 Freq: Status: Active Protocol: Document 01/08/23 07:28 [facility] (Rec: 01/08/23 08:18 [facility] [id number]) Current Condition History of Current Condition Onset Date L 1year ago Current Complaints L knee pain History of Current Condition Pt reports his L knee swelled up after starting w/an ant knee pain (stabbing pain) then it felt unstable. This was last year and it gradually go better. The R knee feels pretty similiar to L right now . he wants to make sure he is doing the right exercises to make sure he doesn't injure it more. [place] took a step and had a pain. He notes it is better now. 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 He played sports w/a hinged brace. He used ibuprofen to help with pain and wore a compression sleeve w/plastic hinge. He wears those every day. He feels it sometimes w/ uneven surfaces, it gets irritated. It hurts ot get on his knees to garden. Since he has always had knee problems, he hasn't even spent much time in squat. Pt reports his knees bothered him into adulthood where they would get sore bu tw/o treatment. Pt reprots the other day the L ankle felt out of joint and it was hard to walk on it. It went back to normal about 20 min later. This is really recent. He has hx of lots of sprained ankles and old breaks. Pt typically d0es 2 15 min walks a dayw/dog daily and walks at least a mile at the dog [email or web address]. He tries to work on the uneven surfaces. The walks usually have a mix of [place], sidewalk and forest lands. now can feel knee w/steep up/down or step on a rootor rock.Pt reprots he has high arches and used to have custom orthotics and most shoes offer enough support. Prior Treatments and Tests Xrays: IMPRESSION: Mild tricompartmental osteoarthritis. Treatment Goals Patient/Caregiver Goals Get an exercise routine to get legs to the best strength he can get PT-OP-C Subjective Start: 01/07/23 13:48 Freq: Status: Active Protocol: Document 02/04/23 12:18 [facility] (Rec: 02/04/23 13:11 [facility] [id number]) OP-PT Subjective Patient Comments Patient Comments Pt reports knee in pain sometimes but is better with squats. He's noticing a sharp pain in mostly L knee but occasionally the right, usually going up/down steps not on flat surface, but he keeps on and it goes away. HEP Compliant. Patient Reported Progress Improving PT-OP-D Balance Start: 01/07/23 13:48 Freq: Status: Active Protocol: Document 01/08/23 07:28 [facility] (Rec: 01/08/23 08:18 [facility] [id number]) Balance Tests Single Limb Standing Single Limb- Right > 30 sec mild deviation and lean over LE Single Limb- Left 24 sec w/ a lot of deviation and ben over LE PT-OP-F Manual Assessment Start: 01/07/23 13:48 Freq: Status: Active Protocol: Document 01/08/23 07:28 [facility] (Rec: 01/08/23 08:18 [facility] [id number]) Manual Assessments Joint Mobility Assessment Joint Mobility Assessment L>R valgus rearfoot, L iliac crest slightly higher, equal greater trochanter, sligth R SB in standing; L pelvic shear PT-OP-G Mobility & Gait Start: 01/07/23 13:48 Freq: Status: Active Protocol: Document 01/08/23 07:28 [facility] (Rec: 01/08/23 08:18 [facility] [id number]) OP Gait Assessment Comments Gait Comments dec arm swing L>R;leans to R, dec pelvis motion, primary set key driver leg walker, 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 PT-OP-K Range of Motion Start: 06/26/23 13:48 Freq: Status: Active Protocol: Document 01/08/23 07:28 [facility] (Rec: 01/08/23 08:18 [facility] [id number]) Knee Goniometric Range of Motion Knee Left Flexion Active (degrees) 121 Hyper-Extension Active 2 Comments feels tight Right Flexion Active (degrees) 120 Extension Active (degrees) 0 Ankle and Foot Goniometric Range of Motion Ankle and Foot Left Active Dorsiflexion with Knee Flexed 0 Right Active Dorsiflexion with Knee Flexed 6 PT-OP-L Special Tests Start: 01/07/23 13:48 Freq: Status: Active Protocol: Document 01/16/23 07:49 [facility] (Rec: 01/16/23 10:07 [facility] [id number]) Special Tests Knee Special Tests Irina Test Test Results neg B Thessaly Test 5 Degrees Test Results neG B Apley's Compression Test Results neg B ligamentous testing Test Results neg B PT-OP-M Strength Start: 01/07/23 13:48 Freq: Status: Active Protocol: Document 01/08/23 07:28 [facility] (Rec: 01/08/23 08:18 [facility] [id number]) Hip Strength Hip Manual Muscle Testing Right Flexion (L2) 4+ Good+ Extension (S1) 4 Good Abduction 3+ Fair+ Adduction 4 Good External Rotation 4+ Good+ Internal Rotation 4+ Good+ Left Flexion (L2) 4+ Good+ Extension (S1) 4 Good Abduction 4 Good Adduction 3+ Fair+ External Rotation 4 Good Internal Rotation 4 Good Knee Strength Knee Manual Muscle Testing Right Flexion (S2) 5 Normal Extension (L3) 5 Normal Left Flexion (S2) 4+ Good+ Extension (L3) 5 Normal Ankle/Foot Strength Ankle and Foot Manual Muscle Testing Right Dorsiflexion (L4) 5 Normal Plantarflexion (S1) 5 Normal Left Dorsiflexion (L4) 5 Normal Plantarflexion (S1) 5 Normal Comments 20 heel raises B PT-OP-Q Treatments Start: 01/07/23 13:48 Freq: Status: Active Protocol: Document 02/04/23 12:18 [facility] (Rec: 02/04/23 13:11 [facility] [id number]) Gym Equipment Shuttle Balance Red Clips Details Balance, weight shifts A/P Comments WBOS> NBOS>Staggered stance dyan EO/EC, head turns Balloon volleyball Therapeutic Exercises Standing Exercises sidesteps Standing Exercise Name standing up right then mini squat Side bilateral Resistance blue band above knees Reps/Minutes 2x 10ft ea Comments cues for hip hinge and core engagement (resolves c/o lumbar discomfort) RDL Standing Exercise Name 10# Side bilateral Reps/Minutes 2 x 10 Comments cues for core engagement and cervical alignment squats Standing Exercise Name No chair Side bilateral Reps/Minutes 15 Comments cues for foot positioning & hip hinge arch raises Standing Exercise Name Verbal review Neuro Re-Education Treatment Balance Activities SLS Surface bilateral Equipment // bars, mirror Reps/Duration trials Comments in mirror w/cues for hips level; LLE>RLE PT-OP-T Assessment and Plan Start: 01/07/23 13:48 Freq: Status: Active Protocol: Document 02/04/23 12:18 [facility] (Rec: 02/04/23 13:11 [facility] [id number]) Physical Therapy Assessment Goals gardening [employer] Goal (LTG) Pt will be able to get down to the ground and on knees w/o inc pain. LTG Duration 04/02 activities Property Controller Goal (LTG) Pt will feel stable w/B knees w/unstable surfaces and report no issues w/ pain during walks or any surface including twisting. LTG Duration 04/02 strength Short Term Goal (STG) Pt will be indep w/HEP STG Duration 02/12/23 Property Controller Goal (LTG) Pt will score 5/5 on all MMT and at lest 3/5 on LPM to show imrpoved stabiltiy of LE and trunk to improve overall body stability. LTG Duration 04/02 balance Property Controller Goal (LTG) Pt will be able to do SLS 30 sec B w/o lat lean or deviation. LTG Duration 04/02/23 Assessment Summary Assessment Heavy ankle strategy w/ balance on shuttle balance and w/ SL balance. Pt requires cues for core engagement which resolves lumbar discomfort, foot positioning and hip hinge to improve LE alignment and knee pain w/ excessive knee flexion. His self-awareness of these cues improves with repetition by end of session and educated to be mindful of these cues when on trails and up/down steps as well. He requires initial cues for cervical alignment w/ RDL and mini squats during sidestepping. Physical Therapy Plan Therapeutic Interventions Therapeutic Interventions Balance Training,Gait Training ,Home Exercise Program,Joint Mobilizations,Manual Therapy, Neuromuscular Re-education, Orthotic/Prosthetic Management ,Patient/Caregiver Education, Self-Care/Home Management,Soft Tissue Mobilization,Taping, Therapeutic Activities, Therapeutic Exercises Modalities Cold Pack/Ice Massage,Electric Stimulation,Hot Packs, Infrared Therapy,Ultrasound Next Visit Focus/Plan Next Note Type Treatment Note Next Visit Plan review HEP: squats, sidesteps, add, RDL, SLS; red clips balance, try lunges, manual to ADD and pelvis. Talus on axis to improve mobility of B knees
--- NOTE | 2023-02-11 11:37 | PT.OTN ---
Current Diagnoses Pain in left knee (02/11/23) Difficulty in walking, not elsewhere classified (02/11/23) Abnormal posture (02/11/23) Weakness (02/11/23) Physical Therapy Treatment Note PT-OP-A Visit Information Start: 01/07/23 13:48 Freq: Status: Active Protocol: Document 02/11/23 10:22 [facility] (Rec: 02/11/23 11:36 [facility] [id number]) Out-Patient Physical Therapy Visit Information Visit Information Visit Type Treatment Note Visit Start Time 10:30 Visit Stop Time 11:15 Total Visit Minutes 45 Visit Number 6 Number of COMMERCIAL REPRESENTATIVE Visits 3 PT-OP-B Current Condition Start: 01/07/23 13:48 Freq: Status: Active Protocol: Document 01/08/23 07:28 [facility] (Rec: 01/08/23 08:18 [facility] [id number]) Current Condition History of Current Condition Onset Date L 1year ago Current Complaints L knee pain History of Current Condition Pt reports his L knee swelled up after starting w/an ant knee pain (stabbing pain) then it felt unstable. This was last year and it gradually go better. The R knee feels pretty similiar to L right now . he wants to make sure he is doing the right exercises to make sure he doesn't injure it more. [place] and had a pain. He notes it is better now. 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 He played sports w/a hinged brace. He used ibuprofen to help with pain and wore a compression sleeve w/plastic hinge. He wears those every day. He feels it sometimes w/ uneven surfaces, it gets irritated. It hurts ot get on his knees to garden. Since he has always had knee problems, he hasn't even spent much time in squat. Pt reports his knees bothered him into adulthood where they would get sore bu tw/o treatment. Pt reprots the other day the L ankle felt out of joint and it was hard to walk on it. It went back to normal about 20 min later. This is really recent. He has hx of lots of sprained ankles and old breaks. Pt typically d0es 2 15 min walks a dayw/dog daily and walks at least a mile at the dog park. He tries to work on the uneven surfaces. The walks usually have a mix of [place], sidewalk and forest lands. now can feel knee w/steep up/down or step on a rootor rock.Pt reprots he has high arches and used to have custom orthotics and most shoes offer enough support. Prior Treatments and Tests Xrays: IMPRESSION: Mild tricompartmental osteoarthritis. Treatment Goals Patient/Caregiver Goals Get an exercise routine to get legs to the best strength he can get PT-OP-C Subjective Start: 01/07/23 13:48 Freq: Status: Active Protocol: Document 02/11/23 10:22 [facility] (Rec: 02/11/23 11:36 [facility] [id number]) OP-PT Subjective Patient Comments Patient Comments Prasad reports he is feeling more stable and has been walking his dog every day and stepping off the paved trail. He noticed this past week that he was not pushing through his toes with steps and using his calf (possibly because of toe pain) so he has been more intentional and he has not experienced knee pain this past week. He tries to use his core when weeding. He notices a little pull inside his L Achilles tendon sometimes. He woke up with low back stiffness and sat and stretched each way until it felt better to get up. Patient Reported Progress Improving PT-OP-D Balance Start: 01/07/23 13:48 Freq: Status: Active Protocol: Document 01/08/23 07:28 [facility] (Rec: 01/08/23 08:18 [facility] [id number]) Balance Tests Single Limb Standing Single Limb- Right > 30 sec mild deviation and lean over LE Single Limb- Left 24 sec w/ a lot of deviation and ben over LE PT-OP-F Manual Assessment Start: 01/07/23 13:48 Freq: Status: Active Protocol: Document 01/08/23 07:28 [facility] (Rec: 01/08/23 08:18 [facility] [id number]) Manual Assessments Joint Mobility Assessment Joint Mobility Assessment L>R valgus rearfoot, L iliac crest slightly higher, equal greater trochanter, sligth R SB in standing; L pelvic shear PT-OP-G Mobility & Gait Start: 01/07/23 13:48 Freq: Status: Active Protocol: Document 01/08/23 07:28 [facility] (Rec: 01/08/23 08:18 [facility] [id number]) OP Gait Assessment Comments Gait Comments dec arm swing L>R;leans to R, dec pelvis motion, primary box truck driver leg walker, 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 PT-OP-K Range of Motion Start: 01/07/23 13:48 Freq: Status: Active Protocol: Document 01/08/23 07:28 [facility] (Rec: 01/08/23 08:18 [facility] [id number]) Knee Goniometric Range of Motion Knee Left Flexion Active (degrees) 121 Hyper-Extension Active 2 Comments feels tight Right Flexion Active (degrees) 120 Extension Active (degrees) 0 Ankle and Foot Goniometric Range of Motion Ankle and Foot Left Active Dorsiflexion with Knee Flexed 0 Right Active Dorsiflexion with Knee Flexed 6 PT-OP-L Special Tests Start: 01/07/23 13:48 Freq: Status: Active Protocol: Document 01/16/23 07:49 [facility] (Rec: 01/16/23 10:07 [facility] [id number]) Special Tests Knee Special Tests Irina Test Test Results neg B Thessaly Test 5 Degrees Test Results neG B Apley's Compression Test Results neg B ligamentous testing Test Results neg B PT-OP-M Strength Start: 01/07/23 13:48 Freq: Status: Active Protocol: Document 01/08/23 07:28 [facility] (Rec: 01/08/23 08:18 [facility] [id number]) Hip Strength Hip Manual Muscle Testing Right Flexion (L2) 4+ Good+ Extension (S1) 4 Good Abduction 3+ Fair+ Adduction 4 Good External Rotation 4+ Good+ Internal Rotation 4+ Good+ Left Flexion (L2) 4+ Good+ Extension (S1) 4 Good Abduction 4 Good Adduction 3+ Fair+ External Rotation 4 Good Internal Rotation 4 Good Knee Strength Knee Manual Muscle Testing Right Flexion (S2) 5 Normal Extension (L3) 5 Normal Left Flexion (S2) 4+ Good+ Extension (L3) 5 Normal Ankle/Foot Strength Ankle and Foot Manual Muscle Testing Right Dorsiflexion (L4) 5 Normal Plantarflexion (S1) 5 Normal Left Dorsiflexion (L4) 5 Normal Plantarflexion (S1) 5 Normal Comments 20 heel raises B PT-OP-Q Treatments Start: 01/07/23 13:48 Freq: Status: Active Protocol: Document 02/11/23 10:22 [facility] (Rec: 02/11/23 11:36 [facility] [id number]) Therapeutic Exercises Supine Exercises LTR Supine Exercise Name HEP Side bilateral Reps/Minutes x10 ea Comments low back and R quad stiffness improves Standing Exercises Calf stretch Standing Exercise Name at wall Side bilateral Reps/Minutes 2x30s ea Lunges Side bilateral Equipment Used // bars Reps/Minutes 2x10 ea Comments cues for upright posture ( glutes), hallux pn resolves w/ repetition/cueing arch raises Standing Exercise Name shoes doffed Side bilateral Reps/Minutes 10 Manual Therapy Treatment Soft Tissue Mobilization calf Body Location L calf and achilles Mobilization Type Rolling,Strumming,Sustained Pressure Intensity/Depth Moderate Body Position Hooklying Comments I/s pt in self-STM to calves Neuro Re-Education Treatment Balance Activities unstable surfaces Details fwd Equipment green, blue, black, therapods Reps/Duration 6 x 10ft therapads, 4x10ft w/ therapids Comments pt cued to slow down to challenge ankle strategy, R excessive hip ER SLS Surface bilateral Equipment // bars, 2 blue foam Reps/Duration trials Comments LLE challenge >RLE LLE stance: 23sec (10s w/ blue foam) RLE stance: 30+ sec (10s w/ blue foam Self-Care/Home Management Treatment Education Patient Education Home Exercise Program Other Education I/S pt in self-STM w/ rolling pin to calves - HO given. -Visual aids used to explain TrA anatomy and how core engagement can alleviate low back pain. PT-OP-T Assessment and Plan Start: 01/07/23 13:48 Freq: Status: Active Protocol: Document 02/11/23 10:22 [facility] (Rec: 02/11/23 11:36 [facility] [id number]) Physical Therapy Assessment Impairments Impairments Activity Tolerance,Balance, Functional Activities, Functional Mobility,Integument ,Pain,Posture,ROM,Soft Tissue Mobility,Strength Goals gardening Research Software Engineer Goal (LTG) Pt will be able to get down to the ground and on knees w/o inc pain. 02/11/23: pt reports able to get up and down this past week w/o pain, mindful of core. LTG Duration 04/02 activities Correction Goal (LTG) Pt will feel stable w/B knees w/unstable surfaces and report no issues w/ pain during walks or any surface including twisting. 02/11/23: Pt reports no pain with walks including uneven surfaces this past week. LTG Duration 04/02 strength Short Term Goal (STG) Pt will be indep w/HEP STG Duration 02/12/23 Correction Goal (LTG) Pt will score 5/5 on all MMT and at lest 3/5 on LPM to show imrpoved stabiltiy of LE and trunk to improve overall body stability. LTG Duration 04/02 balance Research Software Engineer Goal (LTG) Pt will be able to do SLS 30 sec B w/o lat lean or deviation. 02/11/23: LLE: 23s, RLE: 30+s LTG Duration 04/02/23 Assessment Summary Assessment Prasad is continueing to progress towards goals and reports no knee pain over the past week. He is showing increased glute activation w/ single leg balance. He requires maximum cues today with lunges for upright posture and glute activation, possibly due to initial hallux pain which resolves with repetition and cueing - clinic only at this time. He is instructed in self-STM to calves and standing calf stretch to address occasional slight pulling to medial border of L Achilles. With unstable surfaces he is cued to slow down to challenge ankle strategy and demonstrates R excessive hip ER. Visual aid used to explain TrA anatomy and how core engagement can alleviate low back pain. LTR improves low back and R quad stiffness - added to HEP, HO given. Physical Therapy Plan Frequency and Duration Duration of treatment (weeks) 12 Plan of Care Start Date 01/08/23 Plan of Care End Date 04/02/23 Therapeutic Interventions Therapeutic Interventions Balance Training,Gait Training ,Home Exercise Program,Joint Mobilizations,Manual Therapy, Neuromuscular Re-education, Orthotic/Prosthetic Management ,Patient/Caregiver Education, Self-Care/Home Management,Soft Tissue Mobilization,Taping, Therapeutic Activities, Therapeutic Exercises Modalities Cold Pack/Ice Massage,Electric Stimulation,Hot Packs, Infrared Therapy,Ultrasound Next Visit Focus/Plan Next Note Type Treatment Note Next Visit Plan review HEP: lunges (assess for HEP), squats, sidesteps, add, RDL, SLS; red clips balance;, manual to ADD and pelvis. Talus on axis to improve mobility of B knees
--- NOTE | 2023-02-18 10:01 | PT.OTN ---
Current Diagnoses Pain in left knee (02/18/23) Difficulty in walking, not elsewhere classified (02/18/23) Abnormal posture (02/18/23) Weakness (02/18/23) Physical Therapy Treatment Note PT-OP-A Visit Information Start: 01/07/23 13:48 Freq: Status: Active Protocol: Document 02/18/23 09:19 [facility] (Rec: 02/18/23 09:51 NB [id number]) Out-Patient Physical Therapy Visit Information Visit Information Visit Type Treatment Note Visit Start Time 09:20 Visit Stop Time 10:00 Total Visit Minutes 40 Visit Number 7 Number of SOLAR ENERGY TECHNICIAN Visits 4 PT-OP-B Current Condition Start: 01/07/23 13:48 Freq: Status: Active Protocol: Document 01/08/23 07:28 [facility] (Rec: 01/08/23 08:18 [facility] [id number]) Current Condition History of Current Condition Onset Date L 1year ago Current Complaints L knee pain History of Current Condition Pt reports his L knee swelled up after starting w/an ant knee pain (stabbing pain) then it felt unstable. This was last year and it gradually go better. The R knee feels pretty similiar to L right now . he wants to make sure he is doing the right exercises to make sure he doesn't injure it more. [place] a step and had a pain. He notes it is better now. 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 He played sports w/a hinged brace. He used ibuprofen to help with pain and wore a compression sleeve w/plastic hinge. He wears those every day. He feels it sometimes w/ uneven surfaces, it gets irritated. It hurts ot get on his knees to garden. Since he has always had knee problems, he hasn't even spent much time in squat. Pt reports his knees bothered him into adulthood where they would get sore bu tw/o treatment. Pt reprots the other day the L ankle felt out of joint and it was hard to walk on it. It went back to normal about 20 min later. This is really recent. He has hx of lots of sprained ankles and old breaks. Pt typically d0es 2 15 min walks a dayw/dog daily and walks at least a mile at the dog [employer]. He tries to work on the uneven surfaces. The walks usually have a mix of [place], sidewalk and forest lands. now can feel knee w/steep up/down or step on a rootor rock.Pt reprots he has high arches and used to have custom orthotics and most shoes offer enough support. Prior Treatments and Tests Xrays: IMPRESSION: Mild tricompartmental osteoarthritis. Treatment Goals Patient/Caregiver Goals Get an exercise routine to get legs to the best strength he can get PT-OP-C Subjective Start: 01/07/23 13:48 Freq: Status: Active Protocol: Document 02/18/23 09:19 [facility] (Rec: 02/18/23 09:51 [facility] [id number]) OP-PT Subjective Patient Comments Patient Comments Pt reports he's been focusing on balance ex's more than other ex's and in the same day he can stand on 65s and then later the same day it's difficult to even start. He notices he can go longer and is encouraged overall with progress. When I walk my feet feel a lot stronger. He does a lot of the arch raises. He' s been going up the stairs two steps at a time to help with carryover to improve lunges, and sometimes sidesteps up the stairs. He adjusts his form if he starts to feel discomfort in low back. He forgot about self-massage to the calves but has a rolling pin. PT-OP-D Balance Start: 01/07/23 13:48 Freq: Status: Active Protocol: Document 01/08/23 07:28 [facility] (Rec: 01/08/23 08:18 [facility] [id number]) Balance Tests Single Limb Standing Single Limb- Right > 30 sec mild deviation and lean over LE Single Limb- Left 24 sec w/ a lot of deviation and ben over LE PT-OP-F Manual Assessment Start: 01/07/23 13:48 Freq: Status: Active Protocol: Document 01/08/23 07:28 [facility] (Rec: 01/08/23 08:18 [facility] [id number]) Manual Assessments Joint Mobility Assessment Joint Mobility Assessment L>R valgus rearfoot, L iliac crest slightly higher, equal greater trochanter, sligth R SB in standing; L pelvic shear PT-OP-G Mobility & Gait Start: 01/07/23 13:48 Freq: Status: Active Protocol: Document 01/08/23 07:28 [facility] (Rec: 01/08/23 08:18 [facility] [id number]) OP Gait Assessment Comments Gait Comments dec arm swing L>R;leans to R, dec pelvis motion, primary spike driver leg walker, 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 PT-OP-K Range of Motion Start: 01/07/23 13:48 Freq: Status: Active Protocol: Document 01/08/23 07:28 [facility] (Rec: 01/08/23 08:18 [facility] [id number]) Knee Goniometric Range of Motion Knee Left Flexion Active (degrees) 121 Hyper-Extension Active 2 Comments feels tight Right Flexion Active (degrees) 120 Extension Active (degrees) 0 Ankle and Foot Goniometric Range of Motion Ankle and Foot Left Active Dorsiflexion with Knee Flexed 0 Right Active Dorsiflexion with Knee Flexed 6 PT-OP-L Special Tests Start: 01/07/23 13:48 Freq: Status: Active Protocol: Document 01/16/23 07:49 [facility] (Rec: 01/16/23 10:07 [facility] [id number]) Special Tests Knee Special Tests Irina Test Test Results neg B Thessaly Test 5 Degrees Test Results neG B Apley's Compression Test Results neg B ligamentous testing Test Results neg B PT-OP-M Strength Start: 01/07/23 13:48 Freq: Status: Active Protocol: Document 01/08/23 07:28 [facility] (Rec: 01/08/23 08:18 [facility] [id number]) Hip Strength Hip Manual Muscle Testing Right Flexion (L2) 4+ Good+ Extension (S1) 4 Good Abduction 3+ Fair+ Adduction 4 Good External Rotation 4+ Good+ Internal Rotation 4+ Good+ Left Flexion (L2) 4+ Good+ Extension (S1) 4 Good Abduction 4 Good Adduction 3+ Fair+ External Rotation 4 Good Internal Rotation 4 Good Knee Strength Knee Manual Muscle Testing Right Flexion (S2) 5 Normal Extension (L3) 5 Normal Left Flexion (S2) 4+ Good+ Extension (L3) 5 Normal Ankle/Foot Strength Ankle and Foot Manual Muscle Testing Right Dorsiflexion (L4) 5 Normal Plantarflexion (S1) 5 Normal Left Dorsiflexion (L4) 5 Normal Plantarflexion (S1) 5 Normal Comments 20 heel raises B PT-OP-Q Treatments Start: 01/07/23 13:48 Freq: Status: Active Protocol: Document 02/18/23 09:19 [facility] (Rec: 02/18/23 09:51 [facility] [id number]) Therapeutic Exercises Standing Exercises Calf stretch Standing Exercise Name at wall: gastroc/soleus Side bilateral Reps/Minutes 2x30s ea Comments added soleus to HEP Lunges Side bilateral Equipment Used // bars Reps/Minutes 2x10 ea Comments cues for upright posture, glutes, excess pelvis rot, breathing sidesteps Standing Exercise Name standing up right then mini squat Side bilateral Resistance blue band at ankles Reps/Minutes 2x 10ft ea Comments cues for hip hinge and core engagement RDL Standing Exercise Name 10# Side bilateral Reps/Minutes 2 x 10 Comments cues for core engagement and cervical alignment squats Standing Exercise Name chair taps Side bilateral Reps/Minutes 15 Comments good form initiially but cues for hip hinge with fatigue Manual Therapy Treatment Soft Tissue Mobilization calf Body Location L calf and achilles Mobilization Type Rolling,Strumming,Sustained Pressure Intensity/Depth Moderate Body Position Hooklying Comments Reviewed self-STM to calves with rolling pin PT-OP-T Assessment and Plan Start: 01/07/23 13:48 Freq: Status: Active Protocol: Document 02/18/23 09:19 [facility] (Rec: 02/18/23 09:51 [facility] [id number]) Physical Therapy Assessment Assessment Summary Assessment Gayl requires cues for hip hinge and core with ex's with fatigue but shows overall improvement and increased self -awareness. Added soleus stretch to HEP - HO given. Physical Therapy Plan Frequency and Duration Duration of treatment (weeks) 12 Plan of Care Start Date 01/08/23 Plan of Care End Date 04/02/23 Therapeutic Interventions Therapeutic Interventions Balance Training,Gait Training ,Home Exercise Program,Joint Mobilizations,Manual Therapy, Neuromuscular Re-education, Orthotic/Prosthetic Management ,Patient/Caregiver Education, Self-Care/Home Management,Soft Tissue Mobilization,Taping, Therapeutic Activities, Therapeutic Exercises Modalities Cold Pack/Ice Massage,Electric Stimulation,Hot Packs, Infrared Therapy,Ultrasound Next Visit Focus/Plan Next Note Type Treatment Note Next Visit Plan review HEP: lunges (assess for HEP), squats, sidesteps, add, RDL, SLS; red clips balance;, manual to ADD and pelvis. Talus on axis to improve mobility of B knees
--- NOTE | 2023-02-25 18:02 | PT.OTN ---
Current Diagnoses Pain in left knee (02/25/23) Difficulty in walking, not elsewhere classified (02/25/23) Abnormal posture (02/25/23) Weakness (02/25/23) Physical Therapy Treatment Note PT-OP-A Visit Information Start: 01/07/23 13:48 Freq: Status: Active Protocol: Document 02/25/23 09:01 [facility] (Rec: 02/25/23 18:01 [facility] [id number]) Out-Patient Physical Therapy Visit Information Visit Information Visit Type Progress Note Visit Note 07/24 Visit Start Time 08:15 Visit Stop Time 09:00 Total Visit Minutes 45 Visit Number 8 Number of COTTON STOMPER Visits 0 PT-OP-B Current Condition Start: 01/07/23 13:48 Freq: Status: Active Protocol: Document 01/08/23 07:28 [facility] (Rec: 01/08/23 08:18 [facility] [id number]) Current Condition History of Current Condition Onset Date L 1year ago Current Complaints L knee pain History of Current Condition Pt reports his L knee swelled up after starting w/an ant knee pain (stabbing pain) then it felt unstable. This was last year and it gradually go better. The R knee feels pretty similiar to L right now . he wants to make sure he is doing the right exercises to make sure he doesn't injure it more. [place] and [place] step and had a pain. He notes it is better now. 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 He played sports w/a hinged brace. He used ibuprofen to help with pain and wore a compression sleeve w/plastic hinge. He wears those every day. He feels it sometimes w/ uneven surfaces, it gets irritated. It hurts ot get on his knees to garden. Since he has always had knee problems, he hasn't even spent much time in squat. Pt reports his knees bothered him into adulthood where they would get sore bu tw/o treatment. Pt reprots the other day the L ankle felt out of joint and it was hard to walk on it. It went back to normal about 20 min later. This is really recent. He has hx of lots of sprained ankles and old breaks. Pt typically d0es 2 15 min walks a dayw/dog daily and walks at least a mile at the dog park. He tries to work on the uneven surfaces. The walks usually have a mix of [place], sidewalk and forest lands. now can feel knee w/steep up/down or step on a rootor rock.Pt reprots he has high arches and used to have custom orthotics and most shoes offer enough support. Prior Treatments and Tests Xrays: IMPRESSION: Mild tricompartmental osteoarthritis. Treatment Goals Patient/Caregiver Goals Get an exercise routine to get legs to the best strength he can get PT-OP-C Subjective Start: 01/07/23 13:48 Freq: Status: Active Protocol: Document 02/25/23 09:01 [facility] (Rec: 02/25/23 18:01 [facility] [id number]) OP-PT Subjective Patient Comments Patient Comments Pt reprots L heel pain starting about 1 week ago. Notes he carlos been noting less L knee pain overall but still occ twinges. notes he did inc activity as knee started feeling better. compiance w/ stretches PT-OP-D Balance Start: 01/07/23 13:48 Freq: Status: Active Protocol: Document 01/08/23 07:28 [facility] (Rec: 01/08/23 08:18 [facility] [id number]) Balance Tests Single Limb Standing Single Limb- Right > 30 sec mild deviation and lean over LE Single Limb- Left 24 sec w/ a lot of deviation and ben over LE PT-OP-F Manual Assessment Start: 01/07/23 13:48 Freq: Status: Active Protocol: Document 01/08/23 07:28 [facility] (Rec: 01/08/23 08:18 [facility] [id number]) Manual Assessments Joint Mobility Assessment Joint Mobility Assessment L>R valgus rearfoot, L iliac crest slightly higher, equal greater trochanter, sligth R SB in standing; L pelvic shear PT-OP-G Mobility & Gait Start: 01/07/23 13:48 Freq: Status: Active Protocol: Document 01/08/23 07:28 [facility] (Rec: 01/08/23 08:18 [facility] [id number]) OP Gait Assessment Comments Gait Comments dec arm swing L>R;leans to R, dec pelvis motion, 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 concrete pile driver operator leg walker, 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 PT-OP-K Range of Motion Start: 01/07/23 13:48 Freq: Status: Active Protocol: Document 02/25/23 09:01 [facility] (Rec: 02/25/23 18:01 [facility] [id number]) Knee Goniometric Range of Motion Knee Left Flexion Active (degrees) 123 Comments tight ant knee Ankle and Foot Goniometric Range of Motion Ankle and Foot Left Active Dorsiflexion with Knee Flexed 5 Dorsiflexion with Knee Extended 5 PT-OP-L Special Tests Start: 01/07/23 13:48 Freq: Status: Active Protocol: Document 01/16/23 07:49 [facility] (Rec: 01/16/23 10:07 [facility] [id number]) Special Tests Knee Special Tests Irina Test Test Results neg B Thessaly Test 5 Degrees Test Results neG B Apley's Compression Test Results neg B ligamentous testing Test Results neg B PT-OP-M Strength Start: 01/07/23 13:48 Freq: Status: Active Protocol: Document 02/25/23 09:01 [facility] (Rec: 02/25/23 18:01 [facility] [id number]) Hip Strength Hip Manual Muscle Testing Right Flexion (L2) 5 Normal Extension (S1) 4 Good Abduction 5 Normal Adduction 5 Normal External Rotation 5 Normal Internal Rotation 5 Normal Left Flexion (L2) 5 Normal Extension (S1) 4 Good Abduction 5 Normal Adduction 5 Normal External Rotation 5 Normal Internal Rotation 5 Normal Knee Strength Knee Manual Muscle Testing Right Flexion (S2) 5 Normal Extension (L3) 5 Normal Left Flexion (S2) 5 Normal Extension (L3) 5 Normal Ankle/Foot Strength Ankle and Foot Manual Muscle Testing Right Dorsiflexion (L4) 5 Normal Plantarflexion (S1) 5 Normal Left Dorsiflexion (L4) 5 Normal Plantarflexion (S1) 5 Normal Comments 20 heel raises B PT-OP-Q Treatments Start: 01/07/23 13:48 Freq: Status: Active Protocol: Document 02/25/23 09:01 [facility] (Rec: 02/25/23 18:01 [facility] [id number]) Therapeutic Exercises Prone Exercises hip ext Side bilateral Reps/Minutes 5 sec x10 Sitting Exercises stretch Sitting Exercise Name plantar fascia Side left Reps/Minutes 30 sec Standing Exercises gait at wall Side bilateral Reps/Minutes 10 sec x4 Manual Therapy Treatment Soft Tissue Mobilization plantar fascia Body Location B Mobilization Type Rolling Intensity/Depth Moderate Body Position Prone calf Body Location L calf and achilles Mobilization Type Rolling,Strumming,Sustained Pressure Intensity/Depth Moderate Body Position prone & standing Comments Aps Joint Mobilizations tibfib Joint distal Comments AP FM supine then standing talus Comments distraction, med to lat FM ; AP supine & standing FM calcaneus Comments distraction & lat to med FM PT-OP-T Assessment and Plan Start: 01/07/23 13:48 Freq: Status: Active Protocol: Document 02/25/23 09:01 [facility] (Rec: 02/25/23 18:01 [facility] [id number]) Physical Therapy Assessment Goals gardening Curtain Cutter Goal (LTG) Pt will be able to get down to the ground and on knees w/o inc pain. 02/11/23: pt reports able to get up and down this past week w/o pain, mindful of core. LTG Duration achieved 02/25 activities Curtain Cutter Goal (LTG) Pt will feel stable w/B knees w/unstable surfaces and report no issues w/ pain during walks or any surface including twisting. 02/11/23: Pt reports no pain with walks including uneven surfaces this past week. 02/25-advancing- dec pain but occ twinges in ant knee and L heel pain LTG Duration 04/02 strength Short Term Goal (STG) Pt will be indep w/HEP STG Duration achieved-adancing HEP Curtain Cutter Goal (LTG) Pt will score 5/5 on all MMT and at lest 3/5 on LPM to show imrpoved stabiltiy of LE and trunk to improve overall body stability. 02/26-hpi ext and LPM only limit LTG Duration 04/02 balance Curtain Cutter Goal (LTG) Pt will be able to do SLS 30 sec B w/o lat lean or deviation. 02/11/23: LLE: 23s, RLE: 30+s 02/25-still unstable and unable to hold 30 sec on LLE LTG Duration 04/02/23 Assessment Summary Assessment Pt is showing overall improvement w/knee pain but does still note it occ w/ walking and is noting L heel pain that may limit his gait mechanics and mobility also. hHe had tightness in calf/ achilles the week before and started stretching and more recently the heel started. Pt knee still tracks med w/knee bending/squat which improved after manual to ankle and ankle may still be limited his tracking of his knee. Cont PT for improved knee tracking and imprvoing gait mechanics. Physical Therapy Plan Frequency and Duration Duration of treatment (weeks) 12 Plan of Care Start Date 01/08/23 Plan of Care End Date 04/02/23 Therapeutic Interventions Therapeutic Interventions Balance Training,Gait Training ,Home Exercise Program,Joint Mobilizations,Manual Therapy, Neuromuscular Re-education, Orthotic/Prosthetic Management ,Patient/Caregiver Education, Self-Care/Home Management,Soft Tissue Mobilization,Taping, Therapeutic Activities, Therapeutic Exercises Modalities Cold Pack/Ice Massage,Electric Stimulation,Hot Packs, Infrared Therapy,Ultrasound Next Visit Focus/Plan Next Note Type Treatment Note Next Visit Plan d/c lunges (does not have enough big toe ROM); work on mid foot mobility and hip mobility for knee tracking, review exercises from last session
--- NOTE | 2023-03-04 17:26 | PT.OTN ---
Current Diagnoses Pain in left knee (03/04/23) Difficulty in walking, not elsewhere classified (03/04/23) Abnormal posture (03/04/23) Weakness (03/04/23) Physical Therapy Treatment Note PT-OP-A Visit Information Start: 01/07/23 13:48 Freq: Status: Active Protocol: Document 03/04/23 08:21 [facility] (Rec: 03/04/23 17:26 [facility] [id number]) Out-Patient Physical Therapy Visit Information Visit Information Visit Type Treatment Note Visit Start Time 08:21 Visit Stop Time 09:02 Total Visit Minutes 41 Visit Number 9 Number of MANAGER ATHLETICS Visits 0 PT-OP-B Current Condition Start: 01/07/23 13:48 Freq: Status: Active Protocol: Document 01/08/23 07:28 [facility] (Rec: 01/08/23 08:18 [facility] [id number]) Current Condition History of Current Condition Onset Date L 1year ago Current Complaints L knee pain History of Current Condition Pt reports his L knee swelled up after starting w/an ant knee pain (stabbing pain) then it felt unstable. This was last year and it gradually go better. The R knee feels pretty similiar to L right now . he wants to make sure he is doing the right exercises to make sure he doesn't injure it more. [place] step and had a pain. He notes it is better now. 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 He played sports w/a hinged brace. He used ibuprofen to help with pain and wore a compression sleeve w/plastic hinge. He wears those every day. He feels it sometimes w/ uneven surfaces, it gets irritated. It hurts ot get on his knees to garden. Since he has always had knee problems, he hasn't even spent much time in squat. Pt reports his knees bothered him into adulthood where they would get sore bu tw/o treatment. Pt reprots the other day the L ankle felt out of joint and it was hard to walk on it. It went back to normal about 20 min later. This is really recent. He has hx of lots of sprained ankles and old breaks. Pt typically d0es 2 15 min walks a dayw/dog daily and walks at least a mile at the dog [employer]. He tries to work on the uneven surfaces. The walks usually have a mix of [place], sidewalk and forest lands. now can feel knee w/steep up/down or step on a rootor rock.Pt reprots he has high arches and used to have custom orthotics and most shoes offer enough support. Prior Treatments and Tests Xrays: IMPRESSION: Mild tricompartmental osteoarthritis. Treatment Goals Patient/Caregiver Goals Get an exercise routine to get legs to the best strength he can get PT-OP-C Subjective Start: 01/07/23 13:48 Freq: Status: Active Protocol: Document 03/04/23 08:21 [facility] (Rec: 03/04/23 17:26 [facility] [id number]) OP-PT Subjective Patient Comments Patient Comments Pt reports sometimes when he gets his calf stretched out sometimes top of foot bothers him. Notes still some pain in L heel. PT-OP-D Balance Start: 01/07/23 13:48 Freq: Status: Active Protocol: Document 01/08/23 07:28 [facility] (Rec: 01/08/23 08:18 [facility] [id number]) Balance Tests Single Limb Standing Single Limb- Right > 30 sec mild deviation and lean over LE Single Limb- Left 24 sec w/ a lot of deviation and ben over LE PT-OP-F Manual Assessment Start: 01/07/23 13:48 Freq: Status: Active Protocol: Document 01/08/23 07:28 [facility] (Rec: 01/08/23 08:18 [facility] [id number]) Manual Assessments Joint Mobility Assessment Joint Mobility Assessment L>R valgus rearfoot, L iliac crest slightly higher, equal greater trochanter, sligth R SB in standing; L pelvic shear PT-OP-G Mobility & Gait Start: 01/07/23 13:48 Freq: Status: Active Protocol: Document 01/08/23 07:28 [facility] (Rec: 01/08/23 08:18 [facility] [id number]) OP Gait Assessment Comments Gait Comments dec arm swing L>R;leans to R, dec pelvis motion, primary mechanic driver leg walker, 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 PT-OP-K Range of Motion Start: 01/07/23 13:48 Freq: Status: Active Protocol: Document 02/25/23 09:01 [facility] (Rec: 02/25/23 18:01 [facility] [id number]) Knee Goniometric Range of Motion Knee Left Flexion Active (degrees) 123 Comments tight ant knee Ankle and Foot Goniometric Range of Motion Ankle and Foot Left Active Dorsiflexion with Knee Flexed 5 Dorsiflexion with Knee Extended 5 PT-OP-L Special Tests Start: 01/07/23 13:48 Freq: Status: Active Protocol: Document 01/16/23 07:49 [facility] (Rec: 01/16/23 10:07 [facility] [id number]) Special Tests Knee Special Tests Irina Test Test Results neg B Thessaly Test 5 Degrees Test Results neG B Apley's Compression Test Results neg B ligamentous testing Test Results neg B PT-OP-M Strength Start: 01/07/23 13:48 Freq: Status: Active Protocol: Document 02/25/23 09:01 [facility] (Rec: 02/25/23 18:01 [facility] [id number]) Hip Strength Hip Manual Muscle Testing Right Flexion (L2) 5 Normal Extension (S1) 4 Good Abduction 5 Normal Adduction 5 Normal External Rotation 5 Normal Internal Rotation 5 Normal Left Flexion (L2) 5 Normal Extension (S1) 4 Good Abduction 5 Normal Adduction 5 Normal External Rotation 5 Normal Internal Rotation 5 Normal Knee Strength Knee Manual Muscle Testing Right Flexion (S2) 5 Normal Extension (L3) 5 Normal Left Flexion (S2) 5 Normal Extension (L3) 5 Normal Ankle/Foot Strength Ankle and Foot Manual Muscle Testing Right Dorsiflexion (L4) 5 Normal Plantarflexion (S1) 5 Normal Left Dorsiflexion (L4) 5 Normal Plantarflexion (S1) 5 Normal Comments 20 heel raises B PT-OP-Q Treatments Start: 01/07/23 13:48 Freq: Status: Active Protocol: Document 03/04/23 08:21 [facility] (Rec: 03/04/23 17:26 [facility] [id number]) Therapeutic Exercises Prone Exercises hip ext Side bilateral Reps/Minutes 10 sec x3 Sitting Exercises stretch Sitting Exercise Name plantar fascia Side left Reps/Minutes 30 sec Standing Exercises gait at wall Side bilateral Reps/Minutes 10 sec x3 squats Standing Exercise Name chair taps Side bilateral Reps/Minutes 15 Comments good form initiially but cues for hip hinge with fatigue Manual Therapy Treatment Soft Tissue Mobilization plantar fascia Body Location L Mobilization Type Rolling Intensity/Depth Moderate Body Position Prone calf Body Location L calf and achilles Mobilization Type Rolling,Strumming,Sustained Pressure Intensity/Depth Moderate Body Position Standing Comments knee bends Joint Mobilizations mid foot Comments 1. navicular lat to med FM over 1/2 foam roll 2. cuneifrom 1 and 2 lat to med FM over 1/2 foam roll talus Comments distraction, med to lat FM calcaneus Comments distraction & lat to med FM Self-Care/Home Management Treatment Education Other Education 8 min: discussion of arch support possibly being helpful for knee tracking and foot discomfort. Pt tried on superfeet red during session to test feel in shoe. Pt educated green would be the same arch support and can try to see if this helps his foot more. PT-OP-T Assessment and Plan Start: 01/07/23 13:48 Freq: Status: Active Protocol: Document 03/04/23 08:21 [facility] (Rec: 03/04/23 17:26 [facility] [id number]) Physical Therapy Assessment Goals gardening Fdc Goal (LTG) Pt will be able to get down to the ground and on knees w/o inc pain. 02/11/23: pt reports able to get up and down this past week w/o pain, mindful of core. LTG Duration achieved 02/25 activities Bed Teacher Goal (LTG) Pt will feel stable w/B knees w/unstable surfaces and report no issues w/ pain during walks or any surface including twisting. 02/11/23: Pt reports no pain with walks including uneven surfaces this past week. 02/25-advancing- dec pain but occ twinges in ant knee and L heel pain LTG Duration 04/02 strength Short Term Goal (STG) Pt will be indep w/HEP STG Duration achieved-adancing HEP Bed Teacher Goal (LTG) Pt will score 5/5 on all MMT and at lest 3/5 on LPM to show imrpoved stabiltiy of LE and trunk to improve overall body stability. 02/26-hpi ext and LPM only limit LTG Duration 04/02 balance Bed Teacher Goal (LTG) Pt will be able to do SLS 30 sec B w/o lat lean or deviation. 02/11/23: LLE: 23s, RLE: 30+s 02/25-still unstable and unable to hold 30 sec on LLE LTG Duration 04/02/23 Assessment Summary Assessment Pt had improved knee tracking w/manual treatment today. Pt tried on superfeet today and noted feeling comfortable and a little mroe heel support. Pt encouraged to consider these as extra support. Physical Therapy Plan Frequency and Duration Duration of treatment (weeks) 12 Plan of Care Start Date 01/08/23 Plan of Care End Date 04/02/23 Next Visit Focus/Plan Next Note Type Treatment Note Next Visit Plan d/c lunges (does not have enough big toe ROM); work on mid foot mobility and hip mobility for knee tracking
--- NOTE | 2023-03-12 09:48 | PT.OTN ---
Current Diagnoses Pain in left knee (03/12/23) Difficulty in walking, not elsewhere classified (03/12/23) Abnormal posture (03/12/23) Weakness (03/12/23) Physical Therapy Treatment Note PT-OP-A Visit Information Start: 01/07/23 13:48 Freq: Status: Active Protocol: Document 03/12/23 09:04 [facility] (Rec: 03/12/23 09:52 [facility] [id number]) Out-Patient Physical Therapy Visit Information Visit Information Visit Type Treatment Note Visit Note 09/21 after PN Visit Start Time 09:04 Visit Stop Time 09:48 Total Visit Minutes 44 Visit Number 10 Number of E BUSINESS PROJECT MANAGER Visits 1 PT-OP-B Current Condition Start: 01/07/23 13:48 Freq: Status: Active Protocol: Document 01/08/23 07:28 [facility] (Rec: 01/08/23 08:18 [facility] [id number]) Current Condition History of Current Condition Onset Date L 1year ago Current Complaints L knee pain History of Current Condition Pt reports his L knee swelled up after starting w/an ant knee pain (stabbing pain) then it felt unstable. This was last year and it gradually go better. The R knee feels pretty similiar to L right now . he wants to make sure he is doing the right exercises to make sure he doesn't injure it more. [place] and [place] step and had a pain. He notes it is better now. 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 He played sports w/a hinged brace. He used ibuprofen to help with pain and wore a compression sleeve w/plastic hinge. He wears those every day. He feels it sometimes w/ uneven surfaces, it gets irritated. It hurts ot get on his knees to garden. Since he has always had knee problems, he hasn't even spent much time in squat. Pt reports his knees bothered him into adulthood where they would get sore bu tw/o treatment. Pt reprots the other day the L ankle felt out of joint and it was hard to walk on it. It went back to normal about 20 min later. This is really recent. He has hx of lots of sprained ankles and old breaks. Pt typically d0es 2 15 min walks a dayw/dog daily and walks at least a mile at the dog park. He tries to work on the uneven surfaces. The walks usually have a mix of [place], sidewalk and forest lands. now can feel knee w/steep up/down or step on a rootor rock.Pt reprots he has high arches and used to have custom orthotics and most shoes offer enough support. Prior Treatments and Tests Xrays: IMPRESSION: Mild tricompartmental osteoarthritis. Treatment Goals Patient/Caregiver Goals Get an exercise routine to get legs to the best strength he can get PT-OP-C Subjective Start: 01/07/23 13:48 Freq: Status: Active Protocol: Document 03/12/23 09:04 [facility] (Rec: 03/12/23 09:52 [id number]) OP-PT Subjective Patient Comments Patient Comments Pt reports he felt good after last tx. Plantar fascia worse in am, performs achilles and plantar fascia stretching as instructed, gets better as gets mobile through day. Compliant with HEP. He states does work on SLS uneven surface yard at times when out walking around. He acquired the green superfeet day 1 of wearing and unsure if better than what was using prior with use black ankle high boots, still assessing. Verbalized aware if not helping will contact high school math tutor, per PT recommendation. PT-OP-D Balance Start: 01/07/23 13:48 Freq: Status: Active Protocol: Document 01/08/23 07:28 [facility] (Rec: 01/08/23 08:18 [facility] [id number]) Balance Tests Single Limb Standing Single Limb- Right > 30 sec mild deviation and lean over LE Single Limb- Left 24 sec w/ a lot of deviation and ben over LE PT-OP-F Manual Assessment Start: 01/07/23 13:48 Freq: Status: Active Protocol: Document 01/08/23 07:28 [facility] (Rec: 01/08/23 08:18 [facility] [id number]) Manual Assessments Joint Mobility Assessment Joint Mobility Assessment L>R valgus rearfoot, L iliac crest slightly higher, equal greater trochanter, sligth R SB in standing; L pelvic shear PT-OP-G Mobility & Gait Start: 01/07/23 13:48 Freq: Status: Active Protocol: Document 01/08/23 07:28 [facility] (Rec: 01/08/23 08:18 [facility] [id number]) OP Gait Assessment Comments Gait Comments dec arm swing L>R;leans to R, dec pelvis motion, primary airport driver leg walker, 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 PT-OP-K Range of Motion Start: 01/07/23 13:48 Freq: Status: Active Protocol: Document 02/25/23 09:01 [facility] (Rec: 02/25/23 18:01 [facility] [id number]) Knee Goniometric Range of Motion Knee Left Flexion Active (degrees) 123 Comments tight ant knee Ankle and Foot Goniometric Range of Motion Ankle and Foot Left Active Dorsiflexion with Knee Flexed 5 Dorsiflexion with Knee Extended 5 PT-OP-L Special Tests Start: 01/07/23 13:48 Freq: Status: Active Protocol: Document 01/16/23 07:49 [facility] (Rec: 01/16/23 10:07 [facility] [id number]) Special Tests Knee Special Tests Irina Test Test Results neg B Thessaly Test 5 Degrees Test Results neG B Apley's Compression Test Results neg B ligamentous testing Test Results neg B PT-OP-M Strength Start: 01/07/23 13:48 Freq: Status: Active Protocol: Document 02/25/23 09:01 [facility] (Rec: 02/25/23 18:01 [facility] [id number]) Hip Strength Hip Manual Muscle Testing Right Flexion (L2) 5 Normal Extension (S1) 4 Good Abduction 5 Normal Adduction 5 Normal External Rotation 5 Normal Internal Rotation 5 Normal Left Flexion (L2) 5 Normal Extension (S1) 4 Good Abduction 5 Normal Adduction 5 Normal External Rotation 5 Normal Internal Rotation 5 Normal Knee Strength Knee Manual Muscle Testing Right Flexion (S2) 5 Normal Extension (L3) 5 Normal Left Flexion (S2) 5 Normal Extension (L3) 5 Normal Ankle/Foot Strength Ankle and Foot Manual Muscle Testing Right Dorsiflexion (L4) 5 Normal Plantarflexion (S1) 5 Normal Left Dorsiflexion (L4) 5 Normal Plantarflexion (S1) 5 Normal Comments 20 heel raises B PT-OP-Q Treatments Start: 01/07/23 13:48 Freq: Status: Active Protocol: Document 03/12/23 09:04 SP (Rec: 03/12/23 09:52 SP [id number]) Therapeutic Exercises Sitting Exercises eccentric eccentri ankle flexion w /TB Sitting Exercise Name initiated in PT: Hammock PF <> eccentric DF and toe ext stretch w/ TB Side left Resistance TB #6 green (latex) Equipment Used (provided for home- declined HO) Reps/Minutes x10 reps Comments cued slow pacing eccentric stretch 1st MTP and plantar fascia stretch Sitting Exercise Name plantar fascia Side left Reps/Minutes 30 sec Standing Exercises heel raises Standing Exercise Name uneven blue foam pad Resistance AROM Equipment Used blue foam, prn rail Reps/Minutes x10 Comments cued slow pacing improved no UE support ankle mob Standing Exercise Name trialed Side left Equipment Used ft on raised table, contact angled head rest Reps/Minutes x8 reps Comments PA talocrual- reported ankle felt ok but little irritation in L knee- sto Manual Therapy Treatment Soft Tissue Mobilization plantar fascia Body Location L Mobilization Type Cross-Friction,Myofascial Release Intensity/Depth Moderate Body Position seated Comments manual and ed self application good understanding and performance for home (L ankle over R knee) calf Body Location L calf and achilles Mobilization Type Instrument Assisted,Rolling, Strumming,Sustained Pressure Intensity/Depth Moderate Body Position seated Comments manual, rolling pin, ed sustained pressure MWM ankle ROM. Ed self application good understanding and performance for home (L ankle over R knee) Joint Mobilizations mid foot Joint FM ankle IV, EV/pron/sup Comments 1. navicular lat to med FM 2. cuneifrom 1 and 2 lat to med FM 3. MTPs AP/PA 1-5 manual and ed self application seated talus Joint FM ankle IV, EV/pron/sup Comments distraction, med to lat FM IV/ EV calcaneus Comments distraction & lat to med FM manual and ed self mobility Neuro Re-Education Treatment Balance Activities unstable surfaces Details fwd Equipment foam green& blue, therapods, hurdles Reps/Duration x4 laps Comments pt cued to slower pacing, elongated posture w/ scapular comples and core fac, improved ankle strategy and over all stability SLS Equipment 2 blue foam, prn contact table Comments LLE up to 7 sec RLE 5 sec cued elongated posturing w/ core and scapular complex fac awareness PT-OP-T Assessment and Plan Start: 01/07/23 13:48 Freq: Status: Active Protocol: Document 03/12/23 09:04 SP (Rec: 03/12/23 09:52 SP [id number]) Physical Therapy Assessment Goals gardening Glass Tinter Goal (LTG) Pt will be able to get down to the ground and on knees w/o inc pain. 02/11/23: pt reports able to get up and down this past week w/o pain, mindful of core. LTG Duration achieved 02/25 activities Fdc Goal (LTG) Pt will feel stable w/B knees w/unstable surfaces and report no issues w/ pain during walks or any surface including twisting. 02/11/23: Pt reports no pain with walks including uneven surfaces this past week. 02/25-advancing- dec pain but occ twinges in ant knee and L heel pain LTG Duration 04/02 strength Short Term Goal (STG) Pt will be indep w/HEP STG Duration achieved-adancing HEP Fdc Goal (LTG) Pt will score 5/5 on all MMT and at lest 3/5 on LPM to show imrpoved stabiltiy of LE and trunk to improve overall body stability. 02/26-hpi ext and LPM only limit LTG Duration 04/02 balance Glass Tinter Goal (LTG) Pt will be able to do SLS 30 sec B w/o lat lean or deviation. 02/11/23: LLE: 23s, RLE: 30+s 02/25-still unstable and unable to hold 30 sec on LLE 03/12/23: LLE 7 sec, RLE 5 sec on blue foam, shoes doffed. LTG Duration 04/02/23 progressing 03/12/23 Assessment Summary Assessment Pt responded well to manual STMs and ankle mobility LLE over R knee and extra time spent on self application during tx. Pt improved ankle strategies with knee tracking during uneven surface heel raises, jessica stepping with cues for trunk posture/ positioning with core/scap complex awareness. Good response hammock eccentric DF and 1st MTP extension under resistance for more active stretch component. Pt reports good ankle challenge heel raises and SLS on uneven foam, contact table for support needed. Physical Therapy Plan Frequency and Duration Duration of treatment (weeks) 12 Plan of Care Start Date 01/08/23 Plan of Care End Date 04/02/23 Therapeutic Interventions Therapeutic Interventions Balance Training,Gait Training ,Home Exercise Program,Joint Mobilizations,Manual Therapy, Neuromuscular Re-education, Orthotic/Prosthetic Management ,Patient/Caregiver Education, Self-Care/Home Management,Soft Tissue Mobilization,Taping, Therapeutic Activities, Therapeutic Exercises Modalities Cold Pack/Ice Massage,Electric Stimulation,Hot Packs, Infrared Therapy,Ultrasound Next Visit Focus/Plan Next Note Type Treatment Note Next Visit Plan Assess self ankle manual mobility and green superfeet. POC: work on mid foot mobility and hip mobility for knee tracking
--- NOTE | 2023-03-26 13:28 | PT.OTN ---
Current Diagnoses Pain in left knee (03/26/23) Difficulty in walking, not elsewhere classified (03/26/23) Abnormal posture (03/26/23) Weakness (03/26/23) Physical Therapy Treatment Note PT-OP-A Visit Information Start: 01/07/23 13:48 Freq: Status: Active Protocol: Document 03/26/23 12:51 [facility] (Rec: 03/26/23 13:28 [facility] [id number]) Out-Patient Physical Therapy Visit Information Visit Information Visit Type Discharge Summary Visit Start Time 12:50 Visit Stop Time 13:20 Total Visit Minutes 30 Visit Number 11 Number of GROCERY SHOPPER Visits 0 PT-OP-B Current Condition Start: 01/07/23 13:48 Freq: Status: Active Protocol: Document 01/08/23 07:28 [facility] (Rec: 01/08/23 08:18 [facility] [id number]) Current Condition History of Current Condition Onset Date L 1year ago Current Complaints L knee pain History of Current Condition Pt reports his L knee swelled up after starting w/an ant knee pain (stabbing pain) then it felt unstable. This was last year and it gradually go better. The R knee feels pretty similiar to L right now . he wants to make sure he is doing the right exercises to make sure he doesn't injure it more. [place] took [place] step and had a pain. He notes it is better now. 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 He played sports w/a hinged brace. He used ibuprofen to help with pain and wore a compression sleeve w/plastic hinge. He wears those every day. He feels it sometimes w/ uneven surfaces, it gets irritated. It hurts ot get on his knees to garden. Since he has always had knee problems, he hasn't even spent much time in squat. Pt reports his knees bothered him into adulthood where they would get sore bu tw/o treatment. Pt reprots the other day the L ankle felt out of joint and it was hard to walk on it. It went back to normal about 20 min later. This is really recent. He has hx of lots of sprained ankles and old breaks. Pt typically d0es 2 15 min walks a dayw/dog daily and walks at least a mile at the dog [employer]. He tries to work on the uneven surfaces. The walks usually have a mix of [place], sidewalk and forest lands. now can feel knee w/steep up/down or step on a rootor rock.Pt reprots he has high arches and used to have custom orthotics and most shoes offer enough support. Prior Treatments and Tests Xrays: IMPRESSION: Mild tricompartmental osteoarthritis. Treatment Goals Patient/Caregiver Goals Get an exercise routine to get legs to the best strength he can get PT-OP-C Subjective Start: 01/07/23 13:48 Freq: Status: Active Protocol: Document 03/26/23 12:51 [facility] (Rec: 03/26/23 13:28 [facility] [id number]) OP-PT Subjective Patient Comments Patient Comments Pt reports he feels like the superfeet add a little more support. He notes he has only a little pain in foot in the AM. Every now and then but not often, L knee twinges if he pushes it too far fwd over toes but able to correct PT-OP-D Balance Start: 01/07/23 13:48 Freq: Status: Active Protocol: Document 01/08/23 07:28 [facility] (Rec: 01/08/23 08:18 [facility] [id number]) Balance Tests Single Limb Standing Single Limb- Right > 30 sec mild deviation and lean over LE Single Limb- Left 24 sec w/ a lot of deviation and ben over LE PT-OP-F Manual Assessment Start: 01/07/23 13:48 Freq: Status: Active Protocol: Document 01/08/23 07:28 [facility] (Rec: 01/08/23 08:18 [facility] [id number]) Manual Assessments Joint Mobility Assessment Joint Mobility Assessment L>R valgus rearfoot, L iliac crest slightly higher, equal greater trochanter, sligth R SB in standing; L pelvic shear PT-OP-G Mobility & Gait Start: 01/07/23 13:48 Freq: Status: Active Protocol: Document 01/08/23 07:28 [facility] (Rec: 01/08/23 08:18 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 (Rec: 02/25/23 18:01 [facility] [id number]) Knee Goniometric Range of Motion Knee Left Flexion Active (degrees) 123 Comments tight ant knee Ankle and Foot Goniometric Range of Motion Ankle and Foot Left Active Dorsiflexion with Knee Flexed 5 Dorsiflexion with Knee Extended 5 PT-OP-L Special Tests Start: 01/07/23 13:48 Freq: Status: Active Protocol: Document 01/16/23 07:49 [facility] (Rec: 01/16/23 10:07 [facility] [id number]) Special Tests Knee Special Tests Irina Test Test Results neg B Thessaly Test 5 Degrees Test Results neG B Apley's Compression Test Results neg B ligamentous testing Test Results neg B PT-OP-M Strength Start: 01/07/23 13:48 Freq: Status: Active Protocol: Document 03/26/23 12:51 [facility] (Rec: 03/26/23 13:28 [facility] [id number]) Hip Strength Hip Manual Muscle Testing Right Flexion (L2) 5 Normal Extension (S1) 5 Normal Abduction 5 Normal Adduction 5 Normal External Rotation 5 Normal Internal Rotation 5 Normal Comments B AP LPM 3/5; PA B 4/5 Left Flexion (L2) 5 Normal Extension (S1) 5 Normal Abduction 5 Normal Adduction 5 Normal External Rotation 5 Normal Internal Rotation 5 Normal Knee Strength Knee Manual Muscle Testing Right Flexion (S2) 5 Normal Extension (L3) 5 Normal Left Flexion (S2) 5 Normal Extension (L3) 5 Normal Ankle/Foot Strength Ankle and Foot Manual Muscle Testing Right Dorsiflexion (L4) 5 Normal Plantarflexion (S1) 5 Normal Left Dorsiflexion (L4) 5 Normal Plantarflexion (S1) 5 Normal Comments 20 heel raises B PT-OP-Q Treatments Start: 01/07/23 13:48 Freq: Status: Active Protocol: Document 03/26/23 12:51 [facility] (Rec: 03/26/23 13:28 [facility] [id number]) Therapeutic Exercises Supine Exercises stretch Supine Exercise Name HS Side left Reps/Minutes 10sec x4 Comments active Standing Exercises HS stretch Standing Exercise Name bottoms up Side bilateral Reps/Minutes 10 secx3 quad stretch Standing Exercise Name attempted grab ankle and only able on R but can do w/foot on chair L Side bilateral Reps/Minutes 2x30 sec gait at wall Side bilateral Reps/Minutes 10 sec x2 squats Standing Exercise Name tap to mat Side bilateral Reps/Minutes 10 Comments discussion that can progress to lower surface or add wt Self-Care/Home Management Treatment Education Other Education 5 min: review of exercises and what they each offer for importance. Reviewed calf stretching and plantar fasica roll out/stretch PT-OP-T Assessment and Plan Start: 01/07/23 13:48 Freq: Status: Active Protocol: Document 03/26/23 12:51 [facility] (Rec: 03/26/23 13:28 [facility] [id number]) Physical Therapy Assessment Goals gardening Mcc Goal (LTG) Pt will be able to get down to the ground and on knees w/o inc pain. 02/11/23: pt reports able to get up and down this past week w/o pain, mindful of core. LTG Duration achieved 02/25 activities Supply Tech Goal (LTG) Pt will feel stable w/B knees w/unstable surfaces and report no issues w/ pain during walks or any surface including twisting. 02/11/23: Pt reports no pain with walks including uneven surfaces this past week. 02/25-advancing- dec pain but occ twinges in ant knee and L heel pain LTG Duration achieved strength Short Term Goal (STG) Pt will be indep w/HEP STG Duration achieved-adancing HEP Mcc Goal (LTG) Pt will score 5/5 on all MMT and at lest 3/5 on LPM to show imrpoved stabiltiy of LE and trunk to improve overall body stability. 02/26-hpi ext and LPM only limit LTG Duration achieved 03/26 balance Supply Tech Goal (LTG) Pt will be able to do SLS 30 sec B w/o lat lean or deviation. 02/11/23: LLE: 23s, RLE: 30+s 02/25-still unstable and unable to hold 30 sec on LLE 03/12/23: LLE 7 sec, RLE 5 sec on blue foam, shoes doffed. LTG Duration achieved Assessment Summary Assessment Pt has made excellent rpogrss w/PT and is no longer having L knee pain except rarely when he pushes his knee too far past his toe but is able to stop w/adjusting position. He heel pain and foot pain is much improved also and no longer limiting him and is only sore first thing in the AM. He is DC d/t meeting goals Physical Therapy Plan Discharge Physical Therapy Discharge Reasons Goals Met
== END 2023-04-05 09:00 ==
LOC: PHYS 12:45
PROVIDERS: Family Provider Internal Medicine; PCP Internal Medicine; Referring Provider Internal Medicine; Visit Provider Internal Medicine
DX: M25.562 Pain in left knee (principal); R53.1 Weakness; R29.3 Abnormal posture; R26.2 Difficulty in walking, not elsewhere classified
CPT/HCPCS: 97110; 97112; 97140; 97162; 97535; 97750

== ENCOUNTER → 2023-03-26 17:48 | Outpatient (CLI) | payer MEDICARE, BC, SELFPAY | PROVIDERS: Family Provider Internal Medicine; PCP Internal Medicine; Visit Provider Student in an Organized Health Care Education/Training Program | DX: H92.10 Otorrhea, unspecified ear (principal) | CPT/HCPCS: 87070; 87075; 87205 ==

== ENCOUNTER → 2023-06-19 09:23 | Outpatient (CLI) | payer MEDICARE, BC, SELFPAY ==
[2023-06-19 10:56] LABS: Cholesterol 198 mg/dL (140-199); HDL Cholesterol 38 mg/dL (40-60); LDL Cholesterol Calculated 134 mg/dL (<100); Triglycerides 128 mg/dL (35-150)
== END ==
PROVIDERS: Family Provider Internal Medicine; PCP Internal Medicine; Referring Provider Internal Medicine; Visit Provider Internal Medicine
DX: E78.2 Mixed hyperlipidemia (principal)
CPT/HCPCS: 36415; 80061

== ENCOUNTER 2024-03-08 12:01 | Observation (INO) | payer MEDICARE, BC, SELFPAY ==
[2024-03-08] VITALS (20 sets, daily range): BP systolic 122–180; BP diastolic 70–96; PULSE 56–69; RESP 11–26; TEMP 36.7; O2SAT 94–98; BMI 36.1
--- NOTE | 2024-03-08 12:10 | DI.RAD.S_ITS ---
PROCEDURE: XR CHEST 1V INDICATIONS: chest pain TECHNIQUE: One view of the chest was acquired. COMPARISON: None. FINDINGS: Surgical changes and devices: None. Lungs and pleura: Lungs are clear. No pleural effusions or pneumothorax. Mediastinum: Mediastinal contours appear normal. Heart size is normal. Bones and chest wall: No suspicious bony lesions. Overlying soft tissues appear unremarkable. IMPRESSION: No acute cardiopulmonary abnormality is seen. Dictated by: Niko Babb M.D. on 03/08/2024 at 12:39 Approved by: Niok Babb M.D. on 03/08/2024 at 12:39
--- NOTE | 2024-03-08 12:23 | EKG_ITS ---
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
[2024-03-08 12:45] LABS: Prothrombin Time 11.5 SECONDS (9.4-12.5)
[2024-03-08 12:47] LABS: Add Manual Diff / Slide Review NO; Basophils Absolute Auto 100 /uL (0-100); Basophils Percent Auto 0.9 % (0-2); Eosinophils Absolute Auto 100 /uL (0-450); Eosinophils Percent Auto 0.9 % (2-4); Hemoglobin 14.6 g/dL (13.5-17.5); Lymphocytes Absolute Auto 1600 /uL (1100-4500); Lymphocytes Percent Auto 21.2 % (25-40); Mean Corpuscular HGB Conc 34.8 % (30-36); Mean Corpuscular Hemoglobin 32.1 PG (26-34); Mean Corpuscular Volume 92.2 fL (80-100); Monocytes Absolute Auto 600 /uL (0-900); Monocytes Percent Auto 7.7 % (3-14); Neutrophils Absolute Auto 5400 /uL (1500-7000); Neutrophils Percent Auto 69.3 % (50-75); Platelet Count 254 X10^3/uL (150-400); Red Blood Cell Count 4.56 X10^6/uL (4.5-5.9); Red Cell Distribution Width 13.1 % (11.6-14.8); White Blood Cell Count 7.7 X10^3/uL (4.5-11.0)
[2024-03-08 12:48] LABS: PTT Partial Thromboplastin Tim 34 SECONDS (25.1-36.5)
[2024-03-08] MEDS: ASPIRIN 81 MG CHEW TAB 324 MG PO (12:49)
[2024-03-08 12:51] LABS: Alanine Aminotransferase 27 IU/L (<50); Albumin 4.3 g/dL (3.5-5.0); Albumin Globulin Ratio 1.7 (1.0-2.8); Alkaline Phosphatase 42 U/L (38-126); Aspartate Aminotransferase 26 IU/L (17-59); BUN Creatinine Ratio 19.8 (6-22); Blood Urea Nitrogen 19 mg/dL (9-20); Calcium 9.3 mg/dL (8.4-10.2); Carbon Dioxide 22 mmol/L (22-32); Chloride 107 mmol/L (98-107); Creatine Kinase 105 U/L (55-170); Estimated Glomerular Filt Rate > 60 mL/min (>60); Globulin 2.6 g/dL (1.7-4.1); Glucose 116 mg/dL (80-110); HEMOLYSIS 26 (0-50); Lipase 60 U/L (23-300); Potassium 3.9 mmol/L (3.4-5.1); Sodium 137 mmol/L (137-145); Total Protein 6.9 g/dL (6.3-8.2)
[2024-03-08 13:02] LABS: NT-proBNP (BNP-Adult 18+) 99 pg/mL (<125); Troponin I < 0.012 ng/mL (0.01-0.034)
--- NOTE | 2024-03-08 13:10 | ED.CHESTPAIN ---
HPI - Chest Pain General Chief Complaint: Chest Pain Stated Complaint: chest pain, lightheaded, weakness Time Seen by Provider: 03/08/24 13:10 Source: patient Mode of arrival: Ambulatory History of Present Illness HPI narrative: 73-year-old gentleman with a history of hyperlipidemia, no hypertension, diabetes family history of heart problems or personal history of heart issues presents complaining of chest pressure, light-headedness. Last night after walking his dog walking up 4 steps he had an episode of profuse diaphoresis associated with dyspnea. He actually soaked through an entire shirt. Significant fatigue with chest pressure but not pain. This eventually improved. He was able to sleep and this morning as they were doing chores around the house he noticed again pressure through the chest no recurrent episodes of diaphoresis but significant fatigue which is unusual for him. There was no recent fever cough or chills. He notes that while he was having the dramatic dyspnea he felt like he was having palpitations and describes every 4th heartbeat being irregular. He noticed this again this morning for a brief period of time. He reports that he typically has nocturia x4 and last night did not get up to void quite as many times. No recent fevers, cough, nausea, vomiting, diarrhea no abdominal pain no headaches no focal neurologic findings Related Data Previous Rx's Medication Instructions Recorded simvastatin 40 mg tablet 40 mg PO DAILY #90 tabs 12/11/22 Allergies Allergy/AdvReac Type Severity Reaction Status Date / Time No Known Drug Allergies Allergy Verified 03/08/24 12:05 Review of Systems Review of Systems Narrative: Pertinent positive and negative findings as per HPI Patient History Medical History Hyperlipidemia (04/14/12) Acquired hypothyroidism (04/14/12) Family History Brother Prostate cancer Social History household members: spouse Smoking Status: Never smoker alcohol intake: never Smoking Status: Never smoker Substance Use Type: does not use Exam Initial Vital Signs Initial Vital Signs: Vital Signs Temperature 98.1 F 03/08/24 12:05 Pulse Rate 69 03/08/24 12:05 Respiratory Rate 18 03/08/24 12:05 Blood Pressure 158/86 H 03/08/24 12:05 Pulse Oximetry 97 03/08/24 12:05 Oxygen Delivery Method Room Air 03/08/24 12:05 General: Healthy appearing, in no acute distress. Able to give a complete and coherent history. Well-nourished well-developed HEENT: Moist mucous membranes, normal sclera with reactive pupils, Neck: No JVD, supple Respiratory: Lungs are clear to auscultation, no wheezing no rales no rhonchi. Full and symmetrical air movement Cardiac: Regular rate and rhythm no murmurs no bruits Abdomen: Soft, nontender, good bowel tones, no flank pain Skin: Warm and dry, no rashes Neurologic: Grossly neurologically intact with no obvious asymmetries or abnormalities Extremities: No trauma, well perfused Psych: Cooperative, appropriate insight and affect Course Orders Ordered: ED Orders 03/08/24 12:10 XR chest 1V Stat EKG-12 Lead Stat 03/08/24 12:25 Complete Blood Count AUTO DIFF Stat Comprehensive Metabolic Panel Stat Lipase Stat Magnesium Stat NT-proBNP (BNP-Adult 18+) Stat PTT Partial Thromboplastin Vikram Stat Prothrombin Time INR Stat Troponin & CK Cardiac Panel Stat 03/08/24 13:30 PTT Partial Thromboplastin Vikram Q6H 03/08/24 14:32 Troponin I Stat 03/08/24 19:30 PTT Partial Thromboplastin Vikram Q6H 03/09/24 01:30 PTT Partial Thromboplastin Vikram Q6H 03/09/24 05:00 Hemoglobin and Hematocrit DAILY Platelet Count DAILY 03/09/24 07:30 PTT Partial Thromboplastin Vikram Q6H 03/10/24 05:00 Hemoglobin and Hematocrit DAILY Platelet Count DAILY Heparin Sodium/Dextrose (Heparin Drip) 25,000 unit in 500 mls @ 20.226 mls/hr IV CONT THONG; Protocol Last Admin: 03/08/24 13:30 Dose: 9 units/kg/hr, 20 mls/hr Documented By: SHREYA Co-signed By: RB Discontinued Medications Aspirin (Aspirin 81 Mg Chew Tab) 324 mg PO NOW ONE Stop: 03/08/24 12:10 Last Admin: 03/08/24 12:49 Dose: 324 mg Documented By: RB Heparin Sodium (Porcine) (Heparin 5,000 Unit/Ml Vial) 5,000 unit IV NOW ONE Stop: 03/08/24 13:18 Last Admin: 03/08/24 13:27 Dose: 5,000 unit Documented By: SHREYA Vital Signs Vital signs: Vital Signs - 8 hr 03/08/24 12:05 03/08/24 12:13 03/08/24 12:20 Temperature 98.1 F Pulse Rate 69 67 60 Respiratory Rate 18 20 20 Blood Pressure 158/86 H Pulse Oximetry 97 97 Oxygen Delivery Method Room Air 03/08/24 12:20 03/08/24 12:30 03/08/24 12:31 Temperature Pulse Rate 60 60 Respiratory Rate 20 20 Blood Pressure 160/74 H Pulse Oximetry 97 96 Oxygen Delivery Method 03/08/24 12:31 03/08/24 13:00 03/08/24 13:00 Temperature Pulse Rate 61 Respiratory Rate 14 Blood Pressure 143/79 H 132/73 Pulse Oximetry 94 Oxygen Delivery Method 03/08/24 13:31 03/08/24 13:34 03/08/24 13:34 Temperature Pulse Rate 69 58 L Respiratory Rate 18 Blood Pressure 180/90 H Pulse Oximetry 97 97 Oxygen Delivery Method 03/08/24 14:00 03/08/24 14:01 03/08/24 14:01 Temperature Pulse Rate 60 61 Respiratory Rate 26 H 25 H Blood Pressure 170/96 H Pulse Oximetry 97 96 Oxygen Delivery Method 03/08/24 14:30 03/08/24 14:31 03/08/24 14:31 Temperature Pulse Rate 56 L 58 L Respiratory Rate 14 18 Blood Pressure 156/88 H Pulse Oximetry 95 96 Oxygen Delivery Method 03/08/24 15:00 03/08/24 15:00 03/08/24 15:30 Temperature Pulse Rate 57 L 62 Respiratory Rate 14 15 Blood Pressure 165/86 H Pulse Oximetry 95 95 Oxygen Delivery Method 03/08/24 15:30 Temperature Pulse Rate Respiratory Rate Blood Pressure 171/88 H Pulse Oximetry Oxygen Delivery Method MDM - Chest Pain Lab Data 03/08/24 12:25 03/08/24 12:25 Labs: Lab Results 03/08/24 03/08/24 03/08/24 Range/Units 12:25 13:30 14:32 WBC 7.7 (4.5-11.0) X10^3/uL RBC 4.56 (4.5-5.9) X10^6/uL Hgb 14.6 (13.5-17.5) g/dL Hct 42.0 (41-53) % MCV 92.2 (80-100) fL MCH 32.1 (26-34) PG MCHC 34.8 (30-36) % RDW 13.1 (11.6-14.8) % Plt Count 254 (150-400) X10^3/uL Neut % (Auto) 69.3 (50-75) % Lymph % (Auto) 21.2 L (25-40) % [place] % (Auto) 7.7 (3-14) % Eos % (Auto) 0.9 L (2-4) % Baso % (Auto) 0.9 (0-2) % Neut # (Auto) 5400 (3277-8083) /uL Lymph # (Auto) 1600 (2412-2223) /uL [place] # (Auto) 600 (0-900) /uL Eos # (Auto) 100 (0-450) /uL Baso # (Auto) 100 (0-100) /uL PT 11.5 (9.4-12.5) SECONDS INR 1.0 (0.9-1.3) APTT 34 34 (25.1-36.5) SECONDS Sodium 137 (137-145) mmol/L Potassium 3.9 (3.4-5.1) mmol/L Chloride 107 (98-107) mmol/L Carbon Dioxide 22 (22-32) mmol/L BUN 19 (9-20) mg/dL Creatinine 0.96 (0.66-1.25) mg/dL Estimated GFR > 60 (>60) mL/min BUN/Creatinine Ratio 19.8 (6-22) Glucose 116 H (80-110) mg/dL Calcium 9.3 (8.4-10.2) mg/dL Magnesium 2.0 (1.6-2.3) mg/dL Total Bilirubin 1.0 (0.2-1.3) mg/dL AST 26 (17-59) IU/L ALT 27 (<50) IU/L Alkaline Phosphatase 42 (38-126) U/L Total Creatine Kinase 105 (55-170) U/L Troponin I < 0.012 < 0.012 (0.01-0.034) ng/mL NT-Pro-B Natriuret Pep 99 (<125) pg/mL Total Protein 6.9 (6.3-8.2) g/dL Albumin 4.3 (3.5-5.0) g/dL Globulin 2.6 (1.7-4.1) g/dL Albumin/Globulin Ratio 1.7 (1.0-2.8) Lipase 60 (23-300) U/L MDM Narrative Medical decision making narrative: CC: Exertional dyspnea, profuse diaphoresis extended fatigue, chest tightness Complicating co-morbidities: Hyperlipidemia Data collected from: patient Differential considered: Unstable angina, STEMI, infection, congestive heart failure Exam documented above, pertinent findings include: Exam is entirely benign, still complaining of slight chest pressure Lab Test results independently reviewed as above. Pertinent findings: CBC is unremarkable no evidence of anemia Chemistries are reassuring. Glucose slightly elevated at 116. Initial troponin is undetectable Repeat troponin is undetectable Independently reviewed EKG: EKG shows sinus bradycardia at 59. No ischemic changes Imaging studies independently reviewed: Chest x-ray is unremarkable Treatments: Aspirin, topical nitrites, heparin drip Re-evaluations: Heart score is 5 based on his history, this puts him at high risk and hospitalization for observation is recommended. We will plan on nitro paste and beginning a heparin drip at this time we will re-evaluate after 2nd troponin to decide appropriate hospital for admission Discussion: 73-year-old gentleman with unstable angina with 1st and 2nd troponins unremarkable. He currently is pain-free with nitro paste in place, on a heparin drip. Sever had cardiac issues previously. Heart score is 5 which suggests need for hospital admission and further evaluation. Care is reviewed with Dr. Gonsalves, covering for Dr. Lazo. Patient will be admitted for further evaluation Critical Care Time Critical Care Time Critical Care Time: Yes Total Critical Care Time: 33 Attestation: Critical care time is separate from other billable procedures. There is a high probability of a significant, sudden or life-threatening deterioration that requires my full and direct attention, intervention and personal management. This critical care time includes consultation with family and other consulting doctors, review of records, and interpretation of data from labs, EKGs and imaging as well as managements of unstable angina with IV heparin and hospital admission Discharge Plan Departure Patient Disposition: Admitted as Observation Clinical Impression: Angina pectoris, unstable Admit Date/Time: 03/08/24 16:59 Admit Provider: Francisco Gonsalves
[2024-03-08] MEDS: HEPARIN 5,000 UNIT/ML VIAL 5000 UNIT IV (13:27)
[2024-03-08] MEDS: HEPARIN DRIP 25,000 UNIT/500 ML IV.SOLN 20 UNIT IV (13:30)
[2024-03-08 14:02] LABS: PTT Partial Thromboplastin Tim 34 SECONDS (25.1-36.5)
[2024-03-08 15:06] LABS: Troponin I < 0.012 ng/mL (0.01-0.034)
--- NOTE | 2024-03-08 17:53 | PC.NURSE ---
This RN gave verbal report to Saritha Woody RN and informed her next PTT is at 19:30. This RN personally handed the heparin tracking protocol and record keeping papers to Saritha Woody RN. Patient was able to self transfer from stretcher to in patient bed without assistance.
--- NOTE | 2024-03-08 18:02 | DI.ECHO.S_ITS ---
[facility] +---------+ Hospital : : [address] : : [place] : : [address] : : Phone: [phone] Echocardiogram Report + + :Name: JASPER VILLEDA Study Date: 03/09/2024 Height: 69 in : :[facility] ReadingLocation: Weight: 245 lb : : Gender: Male BSA: 2.3 m2 : :: 1950 Age: 73 yrs BP: 131/82 mmHg: :Reason For Study: ACUTE WEAKNESS, SHORTNESS OF BREATH : :Ordering Physician: NELIA, : :DARYL Almaraz Performed By: Sincere Holley : :Referring: DARYL PICKENS : + + Interpretation Summary Mild concentric left ventricular hypertrophy with ejection fraction 55-60%. No significant valvular abnormality. Procedure: A two-dimensional transthoracic echocardiogram with color flow and Doppler was performed. The study quality was technically adequate. There is no prior echocardiogram noted for this patient. The patient was in normal sinus rhythm during the exam. The heart rate ranged between 50-61 bpm during the study. Left Ventricle: The left ventricle is normal in size. There is mild concentric left ventricular hypertrophy. The ejection fraction is estimated to be 55-60%. There are no obvious focal wall motion abnormalities noted but poor endocardial definition reduces the sensitivity for the detection of such. Right Ventricle: The right ventricle is normal in size and function. Atria: The left atrial size is normal. Right atrial size is normal. The interatrial septum grossly appears intact with no obvious evidence for an atrial septal defect. Mitral Valve: The mitral valve is normal. There is no mitral valve stenosis. There is no mitral regurgitation noted. Aortic Valve: The aortic valve is not well visualized. The aortic valve is grossly normal. There is no aortic valve stenosis. No aortic regurgitation is present. Tricuspid Valve: The tricuspid valve is normal. There is no tricuspid stenosis. No tricuspid regurgitation. Pulmonic Valve: The pulmonic valve is not well visualized. There is no pulmonic valvular stenosis. There is no pulmonic valvular regurgitation. Great Vessels: The aortic root is borderline dilated. The ascending aorta is at the upper limits of normal in size. The IVC is dilated (diameter is greater than 2.1 cm) yet it collapses greater than 50% with a sniff. This suggests a right atrial pressure of 8 mm Hg. Pericardium/ Pleura There is no pericardial effusion. There is no pleural effusion. MMode/2D Measurements & Calculations LVIDd: 5.5 cm LVOT diam: 2.3 cm LVIDs: 3.4 cm Ao root diam: 3.8 cm FS: 37.6 % asc Aorta Diam: 3.8 cm IVSd: 1.3 cm LVPWd: 1.2 cm LV wiggins. diameter/BSA (cm/m^2): 2.5 LV sys. diameter/BSA (cm/m^2): 1.5 LA A2 area: 16.9 cm2 RA long axis: 5.2 cm LA A4 area: 17.6 cm2 RA area: 19.0 cm2 LA length (vol): 5.5 cm RA vol: 58.9 ml LA vol: 45.8 ml RA : 26.2 ml/m2 LA vol index: 20.4 ml/m2 IVC diam: 2.2 cm RVD1 (basal): 3.7 cm RVD2 (mid): 3.1 cm TAPSE: 3.1 cm Doppler Measurements & Calculations Ao V2 max: 101.8 cm/sec LVOT Max Yahir: 84.7 cm/sec Ao V2 mean: 76.2 cm/sec LV V1 max P.9 mmHg Ao max P.1 mmHg LV V1 VTI: 19.7 cm Ao mean P.5 mmHg PEPE(I,D): 3.3 cm2 Ao V2 VTI: 25.8 cm PEPE(V,D): 3.6 cm2 sev ratio: 0.76 PEPE indexed to BSA (cm^2/m^2): 1.5 MV E max yahir: 46.6 cm/sec PA V2 max: 83.9 cm/sec MV A max yahir: 53.4 cm/sec PA V2 mean: 58.6 cm/sec MV E/A: 0.87 PA mean P.5 mmHg Med Peak E' Yahir: 5.3 cm/sec PA pr(Accel): 29.3 mmHg E/E' med: 8.8 Lat Peak E' Yahir: 5.5 cm/sec E/E' lat: 8.5 E/e' average: 8.6 MV dec time: 0.35 sec SV(LVOT): 84.6 ml Electronically signed by: Luisa Tamayo on Reading Physician:03/09/2024 11:26 AM
--- NOTE | 2024-03-08 18:04 | P.PN_ITS ---
Subjective Subjective Date Patient Seen: 03/08/24 Time Patient Seen: 18:04 Interval history: Chief complaint chest pain Patient presented to ED with this morning after suddenly becoming acutely she dizzy weak sweaty short of breath yesterday afternoon walking around in his backyard still felt bad this morning so came in emergency room has had a couple episodes of substernal crushing pain. In emergency room he had a heart score of 5 was started on heparin drip with normal EKG and troponins since starting heparin he feels well with no further episodes of chest pain and no nitro need. He has an unremarkable health history otherwise he does take a mild statin does have a family history of heart attack in his grandfather. Feels generally well during interview no pain no complaints. Exam Vital Signs (past 8 hours): - 03/08/24 12:05 03/08/24 12:13 03/08/24 12:20 Temperature 98.1 F Pulse Rate 69 67 60 Respiratory Rate 18 20 20 Blood Pressure 158/86 H Pulse Oximetry 97 97 Oxygen Delivery Method Room Air 03/08/24 12:20 03/08/24 12:30 03/08/24 12:31 Temperature Pulse Rate 60 60 Respiratory Rate 20 20 Blood Pressure 160/74 H Pulse Oximetry 97 96 Oxygen Delivery Method 03/08/24 12:31 03/08/24 13:00 03/08/24 13:00 Temperature Pulse Rate 61 Respiratory Rate 14 Blood Pressure 143/79 H 132/73 Pulse Oximetry 94 Oxygen Delivery Method 03/08/24 13:31 03/08/24 13:34 03/08/24 13:34 Temperature Pulse Rate 69 58 L Respiratory Rate 18 Blood Pressure 180/90 H Pulse Oximetry 97 97 Oxygen Delivery Method 03/08/24 14:00 03/08/24 14:01 03/08/24 14:01 Temperature Pulse Rate 60 61 Respiratory Rate 26 H 25 H Blood Pressure 170/96 H Pulse Oximetry 97 96 Oxygen Delivery Method 03/08/24 14:30 03/08/24 14:31 03/08/24 14:31 Temperature Pulse Rate 56 L 58 L Respiratory Rate 14 18 Blood Pressure 156/88 H Pulse Oximetry 95 96 Oxygen Delivery Method 03/08/24 15:00 03/08/24 15:00 03/08/24 15:30 Temperature Pulse Rate 57 L 62 Respiratory Rate 14 15 Blood Pressure 165/86 H Pulse Oximetry 95 95 Oxygen Delivery Method 03/08/24 15:30 03/08/24 16:00 03/08/24 16:01 Temperature Pulse Rate 59 L 59 L Respiratory Rate 15 15 Blood Pressure 171/88 H Pulse Oximetry 97 95 Oxygen Delivery Method 03/08/24 16:01 03/08/24 16:30 03/08/24 16:30 Temperature Pulse Rate 61 Respiratory Rate 14 Blood Pressure 155/76 H 157/91 H Pulse Oximetry 95 Oxygen Delivery Method 03/08/24 17:00 03/08/24 17:00 03/08/24 17:30 Temperature Pulse Rate 60 Respiratory Rate 11 L Blood Pressure 157/91 H 160/88 H Pulse Oximetry 97 Oxygen Delivery Method 03/08/24 17:30 Temperature Pulse Rate 59 L Respiratory Rate 17 Blood Pressure Pulse Oximetry 98 Oxygen Delivery Method Oxygen Delivery Method Room Air Narrative Exam Narrative: Lying on hospital bed with at bedside Const Other: Well-developed well-nourished HENWY Other: Normocephalic atraumatic Eyes Other: Extraocular movements intact Resp Other: Clear to auscultation bilaterally Cardio Other: Regular rate and rhythm S1-S2 no murmur GI Other: Soft nontender nondistended active bowel sounds Skin Other: No rashes noted Neuro Other: Alert and oriented conversant moving all limbs equally Extrem Other: No pedal edema Psych Other: Appropriate Objective Labs 03/08/24 12:25 03/08/24 12:25 Labs: Laboratory Results - last 24 hr 03/08/24 03/08/24 03/08/24 12:25 13:30 14:32 WBC 7.7 RBC 4.56 Hgb 14.6 Hct 42.0 MCV 92.2 MCH 32.1 MCHC 34.8 RDW 13.1 Plt Count 254 Neut % (Auto) 69.3 Lymph % (Auto) 21.2 L [place] % (Auto) 7.7 Eos % (Auto) 0.9 L Baso % (Auto) 0.9 Neut # (Auto) 5400 Lymph # (Auto) 1600 [place] # (Auto) 600 Eos # (Auto) 100 Baso # (Auto) 100 PT 11.5 INR 1.0 APTT 34 34 Sodium 137 Potassium 3.9 Chloride 107 Carbon Dioxide 22 BUN 19 Creatinine 0.96 Estimated GFR > 60 BUN/Creatinine Ratio 19.8 Glucose 116 H Calcium 9.3 Magnesium 2.0 Total Bilirubin 1.0 AST 26 ALT 27 Alkaline Phosphatase 42 Total Creatine Kinase 105 Troponin I < 0.012 < 0.012 NT-Pro-B Natriuret Pep 99 Total Protein 6.9 Albumin 4.3 Globulin 2.6 Albumin/Globulin Ratio 1.7 Lipase 60 [facility] Medical History Hyperlipidemia (04/14/12) Acquired hypothyroidism (04/14/12) Family History Brother Prostate cancer Social History household members: spouse Smoking Status: Never smoker alcohol intake: never Assessment & Plan Assessment & Plan narrative: #unstable angina concering history seemed to have hit out of the blue - continue heparin drip with statin/ASA - stress test and echocardiogram ordered with registered nurse cardiac #mixed hyperlipidemia change dose to atorvastatin 40 Code: full MDM: PCP: Violet Time-Based Coding :: [TOTAL MINUTES] spent with patient and on the chart (including review of chart, obtaining history, exam, reviewing outside data, placing orders, documenting exam and treatment plan, and counseling patient) on [DATE].
--- NOTE | 2024-03-08 18:10 | P.HP_ITS ---
History of Present Illness History of Present Illness Date Patient Seen: 03/08/24 Time Patient Seen: 17:50 Date of Onset of Symptoms: 03/07/24 Chief complaint: chest pain, lightheaded, weakness Narrative: Patient presented to ED today after yesterday afternoon becoming acutely sweaty disease and weak while working out in his backyard. He still felt awful this morning was planning to go camping with so they decided to come in for evaluation. He does endorse a couple episodes of crushing substernal chest pain out of the blue this morning. since starting heparin in ED no more episodes of pain. Unremarkable medical history otherwise no prior cardiac history there is a history of a heart attack in his grandfather he does take a light statin. [facility] Medical History Hyperlipidemia (04/14/12) Acquired hypothyroidism (04/14/12) Family History Brother Prostate cancer Social History household members: spouse Smoking Status: Never smoker alcohol intake: never Meds Home Medications and Allergies Home Medications Medication Instructions Recorded Confirmed Type simvastatin 40 mg tablet 40 mg PO DAILY #90 tabs 12/11/22 06/24/23 Rx Allergies Allergy/AdvReac Type Severity Reaction Status Date / Time No Known Drug Allergies Allergy Verified 03/08/24 12:05 Review of Systems Review of Systems Narrative: All systems reviewed and negative except as otherwise documented HPI Exam Vital Signs (past 8 hours): - 03/08/24 12:05 03/08/24 12:13 03/08/24 12:20 Temperature 98.1 F Pulse Rate 69 67 60 Respiratory Rate 18 20 20 Blood Pressure 158/86 H Pulse Oximetry 97 97 Oxygen Delivery Method Room Air 03/08/24 12:20 03/08/24 12:30 03/08/24 12:31 Temperature Pulse Rate 60 60 Respiratory Rate 20 20 Blood Pressure 160/74 H Pulse Oximetry 97 96 Oxygen Delivery Method 03/08/24 12:31 03/08/24 13:00 03/08/24 13:00 Temperature Pulse Rate 61 Respiratory Rate 14 Blood Pressure 143/79 H 132/73 Pulse Oximetry 94 Oxygen Delivery Method 03/08/24 13:31 03/08/24 13:34 03/08/24 13:34 Temperature Pulse Rate 69 58 L Respiratory Rate 18 Blood Pressure 180/90 H Pulse Oximetry 97 97 Oxygen Delivery Method 03/08/24 14:00 03/08/24 14:01 03/08/24 14:01 Temperature Pulse Rate 60 61 Respiratory Rate 26 H 25 H Blood Pressure 170/96 H Pulse Oximetry 97 96 Oxygen Delivery Method 03/08/24 14:30 03/08/24 14:31 03/08/24 14:31 Temperature Pulse Rate 56 L 58 L Respiratory Rate 14 18 Blood Pressure 156/88 H Pulse Oximetry 95 96 Oxygen Delivery Method 03/08/24 15:00 03/08/24 15:00 03/08/24 15:30 Temperature Pulse Rate 57 L 62 Respiratory Rate 14 15 Blood Pressure 165/86 H Pulse Oximetry 95 95 Oxygen Delivery Method 03/08/24 15:30 03/08/24 16:00 03/08/24 16:01 Temperature Pulse Rate 59 L 59 L Respiratory Rate 15 15 Blood Pressure 171/88 H Pulse Oximetry 97 95 Oxygen Delivery Method 03/08/24 16:01 03/08/24 16:30 03/08/24 16:30 Temperature Pulse Rate 61 Respiratory Rate 14 Blood Pressure 155/76 H 157/91 H Pulse Oximetry 95 Oxygen Delivery Method 03/08/24 17:00 03/08/24 17:00 03/08/24 17:30 Temperature Pulse Rate 60 Respiratory Rate 11 L Blood Pressure 157/91 H 160/88 H Pulse Oximetry 97 Oxygen Delivery Method 03/08/24 17:30 Temperature Pulse Rate 59 L Respiratory Rate 17 Blood Pressure Pulse Oximetry 98 Oxygen Delivery Method Oxygen Delivery Method Room Air Narrative Exam Narrative: Lying in hospital bed with at bedside Const Other: Well-developed well-nourished HENMT Other: Normocephalic atraumatic Resp Other: Clear to auscultation bilaterally Cardio Other: Regular rate and rhythm S1-S2 no murmurs GI Other: Soft nontender active bowel sounds Neuro Other: Alert awake oriented Extrem Other: Moving all extremities equally no pedal edema Psych Other: Appropriate Objective Labs 03/08/24 12:25 03/08/24 12:25 Labs: Laboratory Results - last 24 hr 03/08/24 03/08/24 03/08/24 12:25 13:30 14:32 WBC 7.7 RBC 4.56 Hgb 14.6 Hct 42.0 MCV 92.2 MCH 32.1 MCHC 34.8 RDW 13.1 Plt Count 254 Neut % (Auto) 69.3 Lymph % (Auto) 21.2 L [place] % (Auto) 7.7 Eos % (Auto) 0.9 L Baso % (Auto) 0.9 Neut # (Auto) 5400 Lymph # (Auto) 1600 [place] # (Auto) 600 Eos # (Auto) 100 Baso # (Auto) 100 PT 11.5 INR 1.0 APTT 34 34 Sodium 137 Potassium 3.9 Chloride 107 Carbon Dioxide 22 BUN 19 Creatinine 0.96 Estimated GFR > 60 BUN/Creatinine Ratio 19.8 Glucose 116 H Calcium 9.3 Magnesium 2.0 Total Bilirubin 1.0 AST 26 ALT 27 Alkaline Phosphatase 42 Total Creatine Kinase 105 Troponin I < 0.012 < 0.012 NT-Pro-B Natriuret Pep 99 Total Protein 6.9 Albumin 4.3 Globulin 2.6 Albumin/Globulin Ratio 1.7 Lipase 60 Assessment & Plan Assessment & Plan narrative: #angina #ACS ruleout continue heparin drip, morning cardiac labs, echo and stress test ordered. manager monitoring. #mixed hyperlipidemia modify to atorvastatin 40 with asa dispo: admit obsv for cardiac workup PCP: Violet MDM: code: Full diet: heart healthy DVT: on heparin drip Time-Based Coding :: [TOTAL MINUTES] spent with patient and on the chart (including review of chart, obtaining history, exam, reviewing outside data, placing orders, documenting exam and treatment plan, and counseling patient) on [DATE].
--- NOTE | 2024-03-08 18:18 | PC.NURSE ---
Pt arrived from ED on stretcher at 1745, hypertensive but otherwise VSS. A&Ox4, no c/o pain, chest pain or SOB. Lungs CTA, CMS+, bowel sounds present. Last BM 03/07, no c/o constipation. Pt and spouse oriented to room and call light. Tele #9 placed on pt. Bed in low position, call light within reach, bed alarm activated, SCDs on.
[2024-03-08 19:48] LABS: PTT Partial Thromboplastin Tim 56 SECONDS (25.1-36.5)
[2024-03-08] MEDS: ACETAMINOPHEN 325 MG TABLET 650 MG PO (20:38)
[2024-03-08] MEDS: ATORVASTATIN 20 MG TABLET 40 MG PO (20:38)
[2024-03-09 00:10] VITALS: BP 128/98; PULSE 67; RESP 18; TEMP 36.6; O2SAT 97
[2024-03-09 01:42] LABS: PTT Partial Thromboplastin Tim 52 SECONDS (25.1-36.5)
[2024-03-09 05:53] VITALS: BP 151/80; PULSE 58; RESP 18; TEMP 37.5; O2SAT 98
[2024-03-09 06:13] LABS: Hematocrit 41.6 % (41-53); Hemoglobin 14.2 g/dL (13.5-17.5); Platelet Count 250 X10^3/uL (150-400)
[2024-03-09 06:26] LABS: Creatine Kinase 76 U/L (55-170)
[2024-03-09 06:38] LABS: Troponin I < 0.012 ng/mL (0.01-0.034)
--- NOTE | 2024-03-09 07:37 | PM.PN.1 ---
Subjective Subjective Date Patient Seen: 03/09/24 Time Patient Seen: 07:37 Interval history: Patient's status reviewed with Dr. Gonsalves this morning. Admitted with episodes chest pain as well as diaphoresis while being physically active. Super suspicious for coronary ischemia as a source of symptoms however EKG completely unremarkable and troponin completely normal x2. No further symptoms since he arrived in the emergency department. He was given some nitro and started on unfractionated heparin drip. Plan for echocardiography and stress testing. Patient's risk factors include a distant family history and a grandfather and a personal history of hyperlipidemia on medium/low intensity statin therapy Exam Vital Signs (past 8 hours): - 03/09/24 00:10 03/09/24 05:53 Temperature 97.8 F 99.5 F Pulse Rate 67 58 L Respiratory Rate 18 18 Blood Pressure 128/98 H 151/80 H Pulse Oximetry 97 98 Oxygen Flow Rate 0 0 Oxygen Delivery Method Room Air Oxygen Flow Rate 0 Objective Labs 03/09/24 05:40 03/08/24 12:25 Labs: Laboratory Results - last 24 hr 03/08/24 03/08/24 03/08/24 12:25 13:30 14:32 WBC 7.7 RBC 4.56 Hgb 14.6 Hct 42.0 MCV 92.2 MCH 32.1 MCHC 34.8 RDW 13.1 Plt Count 254 Neut % (Auto) 69.3 Lymph % (Auto) 21.2 L [place] % (Auto) 7.7 Eos % (Auto) 0.9 L Baso % (Auto) 0.9 Neut # (Auto) 5400 Lymph # (Auto) 1600 [place] # (Auto) 600 Eos # (Auto) 100 Baso # (Auto) 100 PT 11.5 INR 1.0 APTT 34 34 Sodium 137 Potassium 3.9 Chloride 107 Carbon Dioxide 22 BUN 19 Creatinine 0.96 Estimated GFR > 60 BUN/Creatinine Ratio 19.8 Glucose 116 H Calcium 9.3 Magnesium 2.0 Total Bilirubin 1.0 AST 26 ALT 27 Alkaline Phosphatase 42 Total Creatine Kinase 105 Troponin I < 0.012 < 0.012 NT-Pro-B Natriuret Pep 99 Total Protein 6.9 Albumin 4.3 Globulin 2.6 Albumin/Globulin Ratio 1.7 Lipase 60 03/08/24 03/09/24 03/09/24 19:30 01:27 05:40 WBC RBC Hgb 14.2 Hct 41.6 MCV MCH MCHC RDW Plt Count 250 Neut % (Auto) Lymph % (Auto) [place] % (Auto) Eos % (Auto) Baso % (Auto) Neut # (Auto) Lymph # (Auto) [place] # (Auto) Eos # (Auto) Baso # (Auto) PT INR APTT 56 H D 52 H Sodium Potassium Chloride Carbon Dioxide BUN Creatinine Estimated GFR BUN/Creatinine Ratio Glucose Calcium Magnesium Total Bilirubin AST ALT Alkaline Phosphatase Total Creatine Kinase 76 Troponin I < 0.012 NT-Pro-B Natriuret Pep Total Protein Albumin Globulin Albumin/Globulin Ratio Lipase PFSH Medical History Hyperlipidemia (04/14/12) Acquired hypothyroidism (04/14/12) Family History Brother Prostate cancer Social History household members: spouse Smoking Status: Never smoker alcohol intake: never Assessment & Plan Assessment & Plan narrative: 1. Chest pain-I agree symptoms are quite suspicious for cardiac source of his symptoms. However the objective data including his EKG and lab studies thus far do not support that as a diagnosis. I agree with stress testing. Would get patient up and walk around in the hospital if possible as well. I wonder if perhaps there was more of a cardiac dysrhythmia as a source of his symptoms given the negative troponin etcetera. Patient did report feeling a sense of palpitations that is part of this so perhaps there some demand ischemia happening or it is just that rhythm disturbance etcetera. Perhaps we can induce that with exercise stress etcetera. If stress testing is negative he certainly I think he would benefit from an outpatient 7 or 14 day monitor Echocardiography certainly makes sense as well. Continue with heparin for now. When patient's discharge what add aspirin to his regimen as well as probably convert him to a high-intensity statin therapy which is what he has been placed on here Time-Based Coding :: [TOTAL MINUTES] spent with patient and on the chart (including review of chart, obtaining history, exam, reviewing outside data, placing orders, documenting exam and treatment plan, and counseling patient) on [DATE]. PROFEE Charge codes Subsequent inpatient/observation care: [id number]
[2024-03-09 07:54] LABS: PTT Partial Thromboplastin Tim 52 SECONDS (25.1-36.5)
[2024-03-09 08:00] VITALS: BP 131/82; PULSE 58; RESP 14; TEMP 36.5; O2SAT 96
[2024-03-09] MEDS: ASPIRIN EC 81 MG TABLET PO (10:48)
--- NOTE | 2024-03-09 11:33 | CM.DANOTE ---
Brief DCP Assessment Note Pt is a 73yo M pt of Dr. Lazo here under OBS with chest pain. PCP Violet Payer Medicare and [facility]. BOLT MAN reviewed EMR. Per chart, pt is and living in [place] independently. Per RN report, indep in room, echo and stress test pending. Pt 2 of stress test will likely be tomorrow. No obvious CM needs BOLT MAN attempted to meet with pt in room. Pt down of stress test at this time. P: anticipate dc home with spouse support when medically stable/tomorrow. No obvious CM needs identified. CM team will continue to follow as needed MAX Petersen Discharge Planning/Care Management CM Discharge Assessment Start: 03/09/24 11:32 Freq: Status: Active Protocol: Document 03/09/24 11:32 (Rec: 03/09/24 11:33 [id number]) Discharge Planning Assessment Assigned Skein Washer MAX Monsivais DPOA/Assigned Designee Name Mary Beth, spouse Contact Information [phone] Advance Directives? No Advance Directives on File No History Provided By Patient Prior Living Arrangements House Household Members spouse Independent with ADL's Yes Is patient alert and oriented? Yes Discharge Plan Home Referrals Initiated None needed Whiteboard Updated in Patient Room with No name and ext. # of Skein Washer Review Status In Process Please Provide Date Initial DC 03/09/24 Assessment Was Performed Next Review Type Continued Stay Review
[2024-03-09 12:00] VITALS: BP 146/88; PULSE 64; RESP 16; TEMP 36.5; O2SAT 97
[2024-03-09 15:56] VITALS: BP 140/76; PULSE 60; RESP 16; TEMP 36.4; O2SAT 97
--- NOTE | 2024-03-09 16:55 | PM.DS.1 ---
History of Present Illness History of Present Illness Date Patient Seen: 03/09/24 Time Patient Seen: 16:56 Chief complaint: chest pain, lightheaded, weakness Narrative: Patient presented to ED today after yesterday afternoon becoming acutely sweaty disease and weak while working out in his backyard. He still felt awful this morning was planning to go camping with so they decided to come in for evaluation. He does endorse a couple episodes of crushing substernal chest pain out of the blue this morning. since starting heparin in ED no more episodes of pain. Unremarkable medical history otherwise no prior cardiac history there is a history of a heart attack in his grandfather he does take a light statin. {from Dr. Gonsalves's H&P 03/08/24} Discharge Providers Provider Date of admission: 03/08/24 16:59 Discharge Date: 03/09/24 Primary care physician: Guillermo Lazo MD Discharge provider: Guillermo Lazo MD Summary Hospital Course Discharge Diagnosis: 1. Atypical chest pain 2. Hyperlipidemia Hospital Course: Patient was admitted to the hospital as above. He had no further chest pain during his hospitalization. No dysrhythmias were noted on telemetry. Echocardiogram was performed and was entirely normal. Myocardial perfusion testing was performed with exercise stress. Patient had no evidence of ischemia on his ECG and an excellent exercise capacity. No evidence of any perfusion defect whatsoever on stress images Therefore patient was felt to be stable to go home. It was felt given lack evidence coronary artery disease that his symptoms might possibly be due to cardiac dysrhythmia, as noted in my progress note from today. Therefore he will have a 14 day Zio monitor set up for him as well Given lack evidence of atherosclerotic disease he will continue on his current lipid lowering therapy without change. Aspirin 81 mg daily will be added until further testing can be performed Status at Discharge Cognitive/behavioral status at discharge: at baseline, oriented Functional status at discharge: independent ambulation Overall status at discharge: patient is back to baseline Time Spent with Patient Time spent: Less than 30 minutes Exam Vital Signs (past 8 hours): - 03/09/24 12:00 03/09/24 15:56 Temperature 97.7 F 97.6 F Pulse Rate 64 60 Respiratory Rate 16 16 Blood Pressure 146/88 H 140/76 Pulse Oximetry 97 97 Oxygen Flow Rate 0 Oxygen Delivery Method Room Air Oxygen Flow Rate 0 Objective Labs 03/09/24 05:40 03/08/24 12:25 Labs: Laboratory Results - last 24 hr 03/08/24 03/09/24 03/09/24 19:30 01:27 05:40 Hgb 14.2 Hct 41.6 Plt Count 250 APTT 56 H D 52 H Total Creatine Kinase 76 Troponin I < 0.012 03/09/24 07:29 Hgb Hct Plt Count APTT 52 H Total Creatine Kinase Troponin I PFSH Medical History Hyperlipidemia (04/14/12) Acquired hypothyroidism (04/14/12) Family History Brother Prostate cancer Social History household members: spouse Smoking Status: Never smoker alcohol intake: never Discharge Plan Discharge Plan Patient Disposition: Home Provider Discharge Comment: will get call from [facility] re: Zio Monitor Discharge orders & Medications Prescriptions: New aspirin 81 mg tablet,delayed release (DR/EC) 81 mg PO DAILY Qty: 365 1RF Continued simvastatin 40 mg tablet 40 mg PO DAILY Qty: 90 3RF Follow up/Referrals: Guillermo Lazo MD [Primary Care Provider] - 1 Month Discharge Health Status Multidrug resistant organism: No MDRO Diet/Activity/Treatments Diet: Diet as Tolerated Visit Report/Discharge Packet Stand Alone Forms: Patient Portal/API, Stroke Signs & Symptoms Discharge Data Primary Care Provider: Guillermo Lazo Attending Provider: Guillermo Lazo Admit Date/Time: 03/08/24 16:59 PROFEE Charge Codes Discharge inpatient/observation: [id number]
--- NOTE | 2024-03-09 20:43 | DI.NM.S_ITS ---
DATE OF SERVICE: 03/09/2024 PROCEDURE: Exercise treadmill stress only myocardial perfusion imaging with gating to assess ejection fraction and regional wall motion. ORDERING PROVIDER: Francisco Gonsalves M.D INDICATIONS: The patient is a 73-year-old male, admitted with diaphoresis and chest discomfort. CARDIAC STRESS: The patient was able to exercise for 9 minutes 1 second on a standard Jesus protocol suggesting excellent exercise capacity with an ZEESHAN of -33%, achieving 10.1 METs. He had a normal heart rate and blood pressure response to exercise, achieving a maximum heart rate of 132 bpm (89% of his predicted maximum). He had no chest discomfort or other anginal symptoms. His resting ECG is normal with normal ST segments and there are no significant ST-segment shifts with stress. here are rare PVCs with one couplet, but no other complex ectopy. At 8 minutes of exercise at a heart rate of 126 bpm, 27.5 mCi of technetium-99m Myoview was injected and he was imaged 15 minutes later using a gated SPECT acquisition protocol. Given the normal perfusion images, it was felt that resting images were not necessary. FINDINGS: RAW DATA: There is fairly good myocardial tracer uptake with some evidence for diaphragmatic attenuation. The lung/heart ratio was normal at 0.37. QUANTITATIVE-GATED SPECT: Post-stress ejection fraction is estimated at 68% without any focal wall motion abnormality. End-diastolic volume is mildly increased at 123 mL. Tracer uptake of the right ventricular free wall is mildly increased with borderline right ventricular enlargement which can be a sign of a possible right ventricular overload condition but clinical correlation is needed. MYOCARDIAL PERFUSION SCAN: Post-stress supine images show a normal myocardial perfusion pattern with only slight reduction in tracer activity in inferior wall, in a pattern consistent with diaphragmatic attenuation, supported by its complete resolution on the prone images revealing a completely normal, homogeneous perfusion pattern. On the basis of this, it was felt that resting images were not necessary. IMPRESSION: 1. Normal myocardial perfusion study. 2. No compelling evidence for myocardial ischemia or previous myocardial infarction. 3. Normal left ventricular systolic function without focal wall motion abnormality. Left ventricular volumes are mildly increased. There is evidence for possible mild right ventricular enlargement and increased tracer uptake, which can be a sign of a right ventricular overload condition but clinical correlation is recommended. 4. Excellent exercise capacity without angina or ECG evidence of ischemia with only occasional PVCs, but no concerning ectopy. Rashid Eden - Manisha/MARQUEZ doc#: [id number]/job#: [id number] dd: 03/09/2024 16:29:00 dt: 03/09/2024 20:27:00 DICTATING MD/COPIES TO: Yefri Almaraz MD; Guillermo Lazo MD; Francisco Gonsalves M.D. COPIES MNE: REINA; ;
== END 2024-03-09 17:48 | disposition home or self-care (01) ==
LOC: ED 13:33 → AC 17:00
PROVIDERS: Admitting Provider Family Medicine; Emergency Provider Emergency Medicine; Family Provider Internal Medicine; PCP Internal Medicine; Referring Provider Emergency Medicine; Visit Provider Internal Medicine
DX: R07.89 Other chest pain (principal); R61 Generalized hyperhidrosis; R42 Dizziness and giddiness; E78.5 Hyperlipidemia, unspecified
CPT/HCPCS: 36415; 71045; 78451; 80053; 82550; 83690; 83735; 83880; 84484; 85014; 85018; 85025; 85049; 85610; 85730; 93005; 93017; 93306; 96365; 96366; 96375; 99233; 99284; 99291; G0378; A9502; J1644

== ENCOUNTER → 2024-03-12 09:30 | Outpatient (CLI) | payer MEDICARE, BC, SELFPAY ==
[2024-03-08 18:17] VITALS: BMI 36.1
== END ==
LOC: CAR 09:31
PROVIDERS: Family Provider Internal Medicine; PCP Internal Medicine; Referring Provider Internal Medicine; Visit Provider Internal Medicine
DX: I49.9 Cardiac arrhythmia, unspecified (principal); R07.9 Chest pain, unspecified
CPT/HCPCS: 93246

== ENCOUNTER → 2024-05-26 09:58 | Outpatient (CLI) | payer MEDICARE, BC, SELFPAY ==
[2024-03-08 18:17] VITALS: BMI 36.1
== END ==
PROVIDERS: Family Provider Internal Medicine; PCP Internal Medicine; Visit Provider Internal Medicine
DX: N39.0 Urinary tract infection, site not specified (principal)
CPT/HCPCS: 87086

== ENCOUNTER → 2024-05-26 10:08 | Outpatient (CLI) | payer MEDICARE, BC, SELFPAY ==
[2024-03-08 18:17] VITALS: BMI 36.1
[2024-05-26 11:04] LABS: Add Manual Diff / Slide Review NO; Basophils Absolute Auto 100 /uL (0-100); Eosinophils Absolute Auto 100 /uL (0-450); Eosinophils Percent Auto 1.4 % (2-4); Hematocrit 43.6 % (41-53); Hemoglobin 14.9 g/dL (13.5-17.5); Lymphocytes Absolute Auto 1900 /uL (1100-4500); Lymphocytes Percent Auto 26.5 % (25-40); Mean Corpuscular HGB Conc 34.1 % (30-36); Mean Corpuscular Volume 93.7 fL (80-100); Monocytes Absolute Auto 600 /uL (0-900); Monocytes Percent Auto 8.4 % (3-14); Neutrophils Absolute Auto 4500 /uL (1500-7000); Neutrophils Percent Auto 62.7 % (50-75); Platelet Count 276 X10^3/uL (150-400); Red Blood Cell Count 4.66 X10^6/uL (4.5-5.9); White Blood Cell Count 7.2 X10^3/uL (4.5-11.0)
[2024-05-26 11:32] LABS: Alanine Aminotransferase 26 IU/L (<50); Albumin 4.2 g/dL (3.5-5.0); Albumin Globulin Ratio 1.8 (1.0-2.8); Alkaline Phosphatase 53 U/L (38-126); Aspartate Aminotransferase 23 IU/L (17-59); Bilirubin Total 0.7 mg/dL (0.2-1.3); Blood Urea Nitrogen 17 mg/dL (9-20); Calcium 9.7 mg/dL (8.4-10.2); Carbon Dioxide 25 mmol/L (22-32); Chloride 106 mmol/L (98-107); Estimated Glomerular Filt Rate > 60 mL/min (>60); Globulin 2.4 g/dL (1.7-4.1); Glucose 95 mg/dL (80-110); HEMOLYSIS < 15 (0-50); Potassium 4.4 mmol/L (3.4-5.1); Sodium 139 mmol/L (137-145); Total Protein 6.6 g/dL (6.3-8.2)
== END ==
PROVIDERS: Family Provider Internal Medicine; PCP Internal Medicine; Referring Provider Internal Medicine; Visit Provider Internal Medicine
DX: E78.5 Hyperlipidemia, unspecified (principal); N12 Tubulo-interstitial nephritis, not specified as acute or chronic; N39.0 Urinary tract infection, site not specified; N41.0 Acute prostatitis
CPT/HCPCS: 36415; 80053; 84153; 85025; 87077; 87086; 87186